=== PATIENT | male | born 1950 | race Caucasian/White ===

== ENCOUNTER 2022-12-02 09:57 | Outpatient (REF) | payer MEDICARE, SELFPAY ==
--- NOTE | ~2022-12-02 | XR_ITS ---
EXAMINATION: XR LUMBOSACRAL SPINE CLINICAL INFORMATION: Lower back pain COMPARISON: None TECHNIQUE: Three views of the lumbosacral spine. FINDINGS: Grade 1 anterolisthesis of L5 on S1. No acute fracture or subluxation. Vertebral body height and alignment otherwise maintained. Disc spaces are maintained. Mild facet arthropathy. The sacroiliac joints are symmetric. The visualized sacrum is intact. Normal bowel gas pattern. Right upper quadrant surgical clips. XR/XR lumbar spine 2-3V IMPRESSION: Mild degenerative changes of the lumbar spine.
== END 2022-12-02 09:58 | disposition home or self-care (01) ==
LOC: HO.XRAY 09:57
PROVIDERS: Absent Provider Internal Medicine Geriatric Medicine; PCP Internal Medicine Geriatric Medicine; Visit Provider Registered Nurse
DX: M54.50 Low back pain, unspecified (principal)
CPT/HCPCS: 72100

== ENCOUNTER → 2023-02-01 07:32 | Outpatient (BNVA) | payer MEDICARE, SELFPAY | PROVIDERS: PCP Internal Medicine Geriatric Medicine; Referring Provider Internal Medicine Geriatric Medicine; Visit Provider Physician Assistant | DX: Z86.010 Personal history of colon polyps (principal) | CPT/HCPCS: 99202 ==

== ENCOUNTER 2023-03-11 09:09 | Outpatient (REF) | payer MEDICARE, SELFPAY | END 2023-03-11 09:10 | disposition home or self-care (01) | LOC: HO.SH 09:09 | PROVIDERS: Visit Provider Registered Nurse | DX: Z01.118 Encounter for examination of ears and hearing with other abnormal findings (principal); H90.3 Sensorineural hearing loss, bilateral; H69.93 Unspecified Eustachian tube disorder, bilateral | CPT/HCPCS: 92557; 92567 ==

== ENCOUNTER 2023-10-06 06:09 | Day surgery (SDC) | payer MEDICARE, SELFPAY ==
[2023-10-01 09:44] VITALS: BMI 29.2
[2023-10-06 06:27] VITALS: BP 127/67; PULSE 76; RESP 16; TEMP 36.8; O2SAT 98
[2023-10-06 06:37] VITALS: BMI 29.7
[2023-10-06] MEDS: Lactated Ringers 1,000 ML 80 ML IVCONT (06:57)
--- NOTE | 2023-10-06 07:43 | P.HPSUR_ITS ---
Pre-Procedural Eval Section A Date of Service: 10/06/23 Section B Chief Complaint: Personal history of colonic polyps Relevant Family History (Specify if Yes): No Relevant Social History: None Present Medications: see Short Stay Collaborative assessment Medical History: Significant History (Basal cell carcinoma Back pain Anxiety and depression) History of Previous Operations: Relevant previous surgery/procedure and date(s) (H/O vasectomy Hx of colonoscopy Hx of hernia repair Hx of cholecystectomy Hx of appendectomy) Allergies: Allergies Allergy/AdvReac Type Severity Reaction Status Date / Time No Known Allergies Allergy Verified 10/06/23 06:35 [No Known Allergies*] Review of Systems Sugical H&P ROS: Negative: Constitution, Cardiovascular, Respiratory, Neurological, Psychiatric, Hem-Onc, Allergic/Immunologic, Gastrointestinal, Genitourinary, Musculoskeletal, Integumentary, Endocrine and Eyes/Ears/Nose/Throat Exam Surgical H&P Exam: Normal: HEENT, Normal: Heart, Normal: Lungs, Normal: Extrem ities, Normal: Abdomen, Normal: Skin and Normal: Neurological Plan Diagnosis/Plan: Unchanged I have reviewed the history and physical and performed a pertinent physical examination on my patient. No changes have occurred unless specified. Time Spent With Patient Time: Total time managing care of this patient today ____ minutes.
--- NOTE | 2023-10-06 08:21 | HO.ANESPROP2 ---
HPI - Anesthesia Eval Consult details Narrative: colonoscopy PMFSH Active Problems Active Problems: All Active Problems (Updated 10/01/23 @ 09:41 by Clare Francis RN) History of colonic polyps (Acute) Past Medical History Medical History (Updated 10/01/23 @ 09:41 by Clare Francis RN) Basal cell carcinoma Back pain Anxiety and depression Family History Family history of problems with anesthesia: No Surgical History Surgical History (Updated 10/06/23 @ 06:35 by Key Lackey) H/O vasectomy Hx of colonoscopy Hx of hernia repair Hx of cholecystectomy Hx of appendectomy History of Problems with Anesthesia: No Social History Social History Household Members Other:: Alcohol intake: never Patient Tobacco Use Status: Never used Tobacco Use of substances other than those prescribed or required for medical reasons: No Are you DNR?: No Advance Directives: No Advance Directives Information Provided: Yes Meds Allergies Allergy/AdvReac Type Severity Reaction Status Date / Time No Known Allergies Allergy Verified 10/06/23 06:35 [No Known Allergies*] Active Medications: Current Medications Lactated Ringer's (Lr) 1,000 mls @ 80 mls/hr IVCONT .[id number] CATIE Last Admin: 10/06/23 06:57 Dose: 80 mls/hr Home Medications Medication Instructions Recorded Confirmed Last Taken Type acetaminophen 500 mg tablet 500 mg PO Q6H PRN Pain 10/01/23 10/06/23 09/06/23 History (Acetaminophen Extra Strength) ibuprofen 600 mg tablet 600 mg PO QID PRN Pain 10/01/23 10/06/23 09/06/23 History Exam Height,Weight and Vital Signs: Height 5 ft 3 in Weight 75.931 kg Last Vital Signs Temp 98.2 F 10/06/23 06:27 Pulse 76 10/06/23 06:27 Resp 16 10/06/23 06:27 BP 127/67 10/06/23 06:27 Pulse Ox 98 10/06/23 06:27 O2 Del Method Room Air 10/06/23 06:27 Airway Mallampati Class: II TM Dist: >3cm Neck ROM: Full Heart: rrr Lungs: cta Assessment and Plan Assessment Anesthesia Assessment: Chart Reviewed Final Anesthetic Review Family History of Problems with Anesthesia: No History of Problems with Anesthesia: No NPO: Yes ASA Class: II Final Preanesthetic Review: No Changes in Pt Med Stat, Meds/Allgs Chart Reviewed, Consent Obtained/Reviewed and Anes Risks/Benef Reviewed Patient Risk: Low Procedure Risk: Low Anesthetic Plan Anesthetic Plan: MAC: and Agree w/ Assess. and Plan Disposition: Standard PACU
--- NOTE | 2023-10-06 09:07 | P.OP_ITS ---
Operative Note Operative Note Date of Service: 10/06/23 Narrative: Operative Information Procedure Description: Colonoscopy Indication: screening Anesthesia: MAC COLONOSCOPY Instrument: Olympus variable stiffness pediatric scope 190L Colonoscopy Monitoring: Vital signs and clinical assessment, continuous EKG monitoring, Pulse oximetry, Carbon Dioxide monitoring and blood pressure monitoring were done throughout the procedure. Colon withdrawal time was 6 minutes. Procedure: The patient was placed in the left lateral decubitis position and pre-procedure medications were administered. After a digital rectal examination of the ano-rectum, the video colonoscope was inserted into the rectum and advanced through the colon to the cecum/TI. The colonoscope was slowly withdrawn in a retrograde panoramic fashion and the colon mucosa was carefully examined including a retroflexed view of the rectum. Findings and interventions are described below. Procedure Difficulty: easy Findings: Terminal Ileum-normal Cecum:normal Ascending Colon: normal Transverse Colon -normal Descending Colon:normal Sigmoid Colon: normal Rectum: Retroflexion with medium sized internal hemorrhoids, grade I Anorectum - normal Colon preparation: [place] Bowel Preparation Scale Right colon; 3 Transverse colon: 3 Left colon; 3 (0 = Unprepared colon segment with mucosa not seen due to solid stool that cannot be cleared. 1 = Portion of mucosa of the colon segment seen, but other areas of the colon segment not well seen due to staining, residual stool and/or opaque liquid. 2 = Minor amount of residual staining, small fragments of stool and/or opaque liquid, but mucosa of colon segment seen well. 3 = Entire mucosa of colon segment seen well with no residual staining, small fragments of stool or opaque liquid) Impression and Post Procedure Diagnosis: internal hemorrhoids Plan: High fiber diet leaflet Avoid straining at stool, epsom salts and sitz bath, anusol supps or cream Repeat Colonoscopy in 10 years if health allows and patient wishes or earlier if clinically indicated Above findings were reviewed with the patient and relevant handouts were provided if indicated.
[2023-10-06 09:26] VITALS: BP 89/50; PULSE 70; RESP 16; TEMP 36.3; O2SAT 97
[2023-10-06 09:40] VITALS: BP 107/60; PULSE 63; RESP 16; O2SAT 96
[2023-10-06 09:56] VITALS: BP 131/64; PULSE 63; RESP 18; TEMP 37.2; O2SAT 99
== END 2023-10-06 10:25 | disposition home or self-care (01) ==
PROVIDERS: PCP Family Medicine; Visit Provider Internal Medicine Gastroenterology
PROC: 0DJD8ZZ Inspection of Lower Intestinal Tract, Via Natural or Artificial Opening Endoscopic (ICD-10-PCS; CPT 45378; principal; 2023-10-06 09:50)
DX: Z12.11 Encounter for screening for malignant neoplasm of colon (principal); Z86.010 Personal history of colon polyps; K64.0 First degree hemorrhoids; F41.8 Other specified anxiety disorders; Z79.1 Long term (current) use of non-steroidal anti-inflammatories (NSAID); Z90.49 Acquired absence of other specified parts of digestive tract; Z85.828 Personal history of other malignant neoplasm of skin; Z98.52 Vasectomy status
CPT/HCPCS: G0105; J2704

== ENCOUNTER → 2023-10-06 06:09 | Outpatient (BNV) | payer MEDICARE, SELFPAY | PROVIDERS: PCP Family Medicine; Visit Provider Internal Medicine Gastroenterology | DX: Z12.11 Encounter for screening for malignant neoplasm of colon (principal); Z86.010 Personal history of colon polyps; K64.8 Other hemorrhoids | CPT/HCPCS: G0105 ==

== ENCOUNTER 2023-10-20 11:01 | Outpatient (AMB) | payer MEDICARE, MEDICAID, SELFPAY ==
--- NOTE | 2023-10-20 11:09 | MHC.OFFVIS ---
Intake Vital Signs 10/20/23 11:11 Height 5 ft 3 in Weight 165 lb BMI 29.2 BP 128/58 L Blood Pressure Location Lt brachial Position Sitting Pulse 79 Intake Visit Reasons: S/P [place]; Dr. Fowler Intake Note: Patient follow up Colonoscopy results. 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 Fowler He tolerated procedure well Reviewed procedure report, as well as recommendation He is a healthy diet He does have alternating stool pattern no abdominal pain or hematemesis hematochezia PFS Medical History (Updated 10/20/23 @ 11:37 by Keri Barfield PA-C) Basal cell carcinoma Back pain Anxiety and depression Surgical History H/O vasectomy Hx of colonoscopy Hx of hernia repair Hx of cholecystectomy Hx of appendectomy Social History Household Members Other:: Alcohol intake: never Patient Tobacco Use Status: Never used Tobacco Review of Systems Const All systems reviewed & are unremarkable except as noted in HPI and below Card Denies chest pain and Denies dyspnea Resp Denies dyspnea Physical Exam Vital Signs: Last Vital Signs Pulse 79 10/20/23 11:11 BP 128/58 L 10/20/23 11:11 BMI result Body Mass Index 29.2 Pleasant alert Gent Const General: cooperative, healthy appearing, comfortable and no acute distress Orientation/consciousness: patient oriented x3 Limitations: language barrier Eyes Sclerae: sclerae normal Resp Effort & Inspection: normal respiratory effort and able to speak in complete sentences Skin General skin exam: no rashes or lesions noted Neuro General: patient oriented x3 Extrem General: Yes full ROM Psych Appearance: grossly normal and well kempt Mental Status: mental status grossly normal Speech and movement: Normal speech and movement present and Clear speech present Affect: normal affect Attitude: cooperative Thought process: Normal thought process present Thought content: Normal thought content present Results Reviewed Results Reviewed: Impression and Post Procedure Diagnosis: internal hemorrhoids Plan: High fiber diet leaflet Avoid straining at stool, epsom salts and sitz bath, anusol supps or cream Repeat Colonoscopy in 10 years if health allows and patient wishes or earlier if clinically indicated Assessment & Plan Assessment & Plan (1) Hemorrhoids: Code(s): K64.9 - Unspecified hemorrhoids Plan: Maintain high-fiber diet Citrucel Avoid straining Plan Repeat asymptomatic colonoscopy 10 years sooner if indicated Maintain high-fiber diet Citrucel Avoid straining Medications: New hydrocortisone 2.5% (Proctosol HC) 1 appl NM BEDTIME PRN 30 grams 3RF hemorrhoids methylcellulose (laxative) (Citrucel) 500 mg PO BID 60 tabs 5RF Patient Instructions: Maintain high-fiber diet Citrucel Avoid straining Asymptomatic colonoscopy 10 years sooner if indicated Coding Level of Care Code Est Pt Level 3 (77242) Diagnoses Hemorrhoids K64.9 Time Spent (min) 15 Comment Assembler Musical 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
[2023-10-20 11:11] VITALS: BP 128/58; PULSE 79; BMI 29.2
== END 2023-10-20 12:35 | disposition home or self-care (01) ==
PROVIDERS: PCP Internal Medicine Geriatric Medicine; Referring Provider Internal Medicine Geriatric Medicine; Visit Provider Physician Assistant
DX: K64.9 Unspecified hemorrhoids (principal)
CPT/HCPCS: 99213

== ENCOUNTER → 2023-10-20 11:01 | Outpatient (BNVA) | payer MEDICARE, SELFPAY | PROVIDERS: PCP Internal Medicine Geriatric Medicine; Visit Provider Physician Assistant | DX: K64.9 Unspecified hemorrhoids (principal) | CPT/HCPCS: 99212 ==

== ENCOUNTER 2024-06-16 10:30 | Outpatient (REF) | payer MEDICARE, MEDICAID, SELFPAY ==
[2024-06-16 14:13] LABS: MANUAL DIFF FLAG NO
[2024-06-16 14:28] LABS: Basophils Absolute Auto 0.1 X10*3/uL (0.0-0.2); Basophils Percent Auto 1.2 % (0-2); Eosinophils Absolute Auto 0.1 X10*3/uL (0.0-0.4); Eosinophils Percent Auto 2.7 % (0-4); Hematocrit 42.1 % (42.0-52.0); Hemoglobin 13.6 g/dl (14.0-18.0); Imm Gran Abs Auto 0.01 X10*3/uL (0.00-0.03); Imm Gran Pct Auto 0.2 % (0.0-0.4); Lymphocytes Absolute Auto 1.6 X10*3/uL (1.2-4.9); Lymphocytes Percent Auto 32.3 % (20-40); Mean Corpuscular HGB Conc 32.3 g/dl (31.0-36.0); Mean Corpuscular Hemoglobin 30.4 pg (27.0-33.0); Mean Corpuscular Volume 94.2 fL (80.0-98.0); Monocytes Absolute Auto 0.4 X10*3/uL (0.1-1.2); Monocytes Percent Auto 7.2 % (2-11); Neutrophils Absolute Auto 2.7 x10*3/uL (2.0-8.3); Neutrophils Percent Auto 56.4 % (45-73); Platelet Count 152 X10*3/uL (160-400); Red Blood Count 4.47 X10*6/uL (4.60-5.80); Red Cell Distribution Width 12.7 % (11.0-16.0); White Blood Count 4.9 X10*3/uL (4.8-10.8)
[2024-06-16 15:02] LABS: Estimated Average Glucose 114 mg/dL; Hemoglobin A1c % 5.6 % (<6.0)
[2024-06-16 15:16] LABS: Prostate Specific Antigen 2.72 ng/mL (<0.05-4.0)
[2024-06-16 15:18] LABS: Alanine Aminotransferase 11 U/L (0-40); Albumin Level 4.1 g/dL (3.5-5.0); Alkaline Phosphatase 70 U/L (39-117); Anion Gap 10 (12-20); Aspartate Amino Transferase 18 U/L (5-37); Bilirubin Total 0.5 mg/dL (0.0-1.0); Blood Urea Nitrogen 15 mg/dL (9-16); Calcium 9.1 mg/dL (8.4-10.2); Carbon Dioxide 29 mmol/L (22-29); Chloride 105 mmol/L (96-108); Cholesterol 156 mg/dL (<200); Estimated Glomerular Filt Rate > 60; Glucose Random 88 mg/dL (60-115); HDL Cholesterol 37 mg/dL (>40); LDL Cholesterol Calculated 96 mg/dL (<100); Potassium 3.7 mmol/L (3.3-5.1); Sodium 140 mmol/L (135-145); Total Protein 7.2 g/dL (6.5-8.0); Triglycerides 117 mg/dL (<150)
[2024-06-16 15:26] LABS: TSH reflex Free T4 1.41 uIU/mL (0.32-4.0)
[2024-06-16 16:00] LABS: CT PCR NOT DETECTED (Not Detect.); NG PCR NOT DETECTED (Not Detect.)
[2024-06-17 07:47] LABS: HBc Num1 0.07 S/CO (0.00-0.79); HBsAGNum1 0.26 S/CO (0.00-0.99); HIV AB/AG Nonreactive (Nonreactive); HIV Num 1 0.05 S/CO (0.00-0.99); Hepatitis B Core Antibody Nonreactive (Nonreactive); Hepatitis B Surface Antigen Negative (Negative); ~Hepatitis B Surface Antibody NONREACTIVE (Nonreactive)
[2024-06-19 12:39] LABS: RPR Rapid Plasma Reagin NON-REACTIVE (NON-REACTIVE)
[2024-06-19 14:13] LABS: HCV Log PCR <1.18 NOT DETECTED Log IU/mL (NOT DETECTED); HepC Viral Load <15 NOT DETECTED IU/mL (NOT DETECTED)
== END 2024-06-16 10:31 | disposition home or self-care (01) ==
LOC: HO.CHCLDS 10:30
PROVIDERS: Visit Provider Registered Nurse
DX: Z00.00 Encounter for general adult medical examination without abnormal findings (principal); Z12.5 Encounter for screening for malignant neoplasm of prostate; Z13.1 Encounter for screening for diabetes mellitus
CPT/HCPCS: 36415; 80053; 80061; 83036; 84153; 84443; 85025; 86592; 86704; 86706; 87340; 87389; 87491; 87522; 87591

== ENCOUNTER 2024-07-28 09:02 | Outpatient (REF) | payer MEDICARE, MEDICAID, SELFPAY ==
--- NOTE | ~2024-07-28 | CT_ITS ---
EXAMINATION: CT HEAD WITHOUT CONTRAST CLINICAL INFORMATION: [place] sensation in back of head. COMPARISON: None available. TECHNIQUE: Contiguous axial imaging was performed from the skull base to vertex without intravenous administration of contrast. This CT examination was performed using dose optimization techniques as appropriate, variously including the following: *Automated exposure control. *Adjustment of mA and/or kV according to patient size (this includes techniques or standardized protocols for targeted exams where dose is matched to indication/reason for exam; i.e. extremities or head). *Use of iterative reconstruction technique. DLP: 817 mGy-cm FINDINGS: There is chronic encephalomalacia within the anterior left frontal lobe with associated volume loss. No additional loss of de [place] ve[place]-white matter differentiation. No evidence of acute intracranial hemorrhage. A few foci of hypoattenuation in the periventricular and deep white matter are consistent with mild microangiopathy. Proportional prominence of the ventricles and sulcal spaces without evidence of obstructive hydrocephalus. No abnormal mass effect or midline shift. No extra-axial fluid collections. Calcific atherosclerotic disease of the intracranial internal carotid and vertebral arteries. No hyperdense vessel sign. Chronic appearing groundglass hyperostotic changes of the left frontal sinus. No acute soft tissue or osseous abnormalities. Mild mucosal thickening of the paranasal sinuses. The mastoid air cells and middle ear cavities are clear. CT/CT head/brain wo IV con IMPRESSION: 1. No evidence of acute intracranial hemorrhage or edematous territorial infarction. 2. 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 Mild underlying microangiopathy and generalized cerebral volume loss. Electronically signed by: Nabil Velazquez DO 09/20/2024 04:37 AM [facility] [place]
== END 2024-07-28 09:03 | disposition home or self-care (01) ==
LOC: HO.CT 09:02
PROVIDERS: PCP Registered Nurse; Visit Provider Registered Nurse
DX: R29.90 Unspecified symptoms and signs involving the nervous system (principal)
CPT/HCPCS: 70450

== ENCOUNTER 2024-08-09 10:20 | Outpatient (REF) | payer MEDICARE, MEDICAID, SELFPAY ==
[2024-08-09 12:21] LABS: Alanine Aminotransferase 17 U/L (0-40); Alkaline Phosphatase 72 U/L (39-117); Aspartate Amino Transferase 24 U/L (5-37); Bilirubin Direct 0.2 mg/dL (0.0-0.5); Bilirubin Total 0.6 mg/dL (0.0-1.0); Cholesterol 146 mg/dL (<200); HDL Cholesterol 36 mg/dL (>40); LDL Cholesterol Calculated 88 mg/dL (<100); Total Protein 7.1 g/dL (6.5-8.0); Triglycerides 113 mg/dL (<150)
== END 2024-08-09 10:21 | disposition home or self-care (01) ==
LOC: HO.HHCL 10:20
PROVIDERS: Visit Provider Registered Nurse
DX: E78.5 Hyperlipidemia, unspecified (principal)
CPT/HCPCS: 36415; 80061; 80076

== ENCOUNTER 2024-08-14 10:53 | Outpatient (AMB) | payer MEDICARE, MEDICAID, SELFPAY ==
--- NOTE | 2024-08-14 11:03 | A.OFFVIS_ITS ---
Intake Visit Reasons: erectile dysfunction Intake Note: New Patient presents for initial visit for erectile dysfunction Urology Medications: none Blood Thinner: none Government Relations Analyst Required: Yes Government Relations Analyst Name: ANDREY BATEMANHERBIE Accompanied by: Self / Same As Patient Allergies No Known Allergies [No Known Allergies*] Allergy (Verified 08/14/24 11:40) Medication List - Last Reconciled 08/14/24 by JUSTIN Snow acetaminophen (Acetaminophen Extra Strength) 500 mg PO Q6H PRN hydrocortisone 2.5% (Proctosol HC) 1 appl RI BEDTIME PRN ibuprofen 600 mg PO QID PRN methylcellulose (laxative) (Citrucel) 500 mg PO BID rosuvastatin 20 mg PO BEDTIME HPI Comments Details: Cheng is a 74-year-old [place]isian-speaking male patient of . He has a past medical history of back pain, basal cell carcinoma, anxiety, and depression. He presents to the office today as a new patient for erectile dysfunction. In discussion with the patient today he reports erectile dysfunction to have been present for over 10-15 years. When asked he does report being able to obtain erections however feels maintaining erections to be difficult. He reports feeling erections are not adequate for penetration. In review of patient's chart it appears PSA was ordered and performed. These results were reviewed with the patient today. PSA 07/04 2.7. We discussed at length potential causes of erectile dysfunction. When asked he does report sexual desire. He otherwise denies any bothersome urinary issues. He denies urinary urgency, urinary frequency, incontinence, nocturia, hematuria, dysuria, foul smelling urine, changes to urinary stream, flank pain, fever, and or chills. He is happy with her current voiding parameters. He otherwise offers no other issues or concerns at this time. [facility] Medical History Basal cell carcinoma Back pain Anxiety and depression Surgical History H/O vasectomy Hx of colonoscopy Hx of hernia repair Hx of cholecystectomy Hx of appendectomy Social History Household Members Other:: Alcohol intake: never Patient Tobacco Use Status: Never used Tobacco Review of Systems Const All systems reviewed & are unremarkable except as noted in HPI and below Physical Exam Const General: cooperative, comfortable, no acute distress, well developed, alert and awake Orientation/consciousness: patient oriented x3 HEENT Head: Yes normal to inspection, Yes normocephalic and Yes atraumatic Ears: hearing grossly normal bilaterally Eyes General: appearance normal, both eyes and all related structures Neck Neck: Yes normal visual inspection and Yes trachea midline Chest Chest palpation & inspection: normal inspection of the chest Resp Effort & Inspection: normal respiratory effort and able to speak in complete sentences Cardio Rate: regular rate GI Inspection: Yes normal to inspection General: Yes no CVA tenderness Back/Spine/Pelvis Back: no CVA tenderness Skin General skin exam: no rashes or lesions noted Neuro General: patient oriented x3 Extrem General: Yes normal to inspection Psych Appearance: grossly normal and well kempt Mental Status: mental status grossly normal Speech and movement: Normal speech and movement present and Clear speech present Affect: normal affect Attitude: cooperative Thought process: Normal thought process present Thought content: Normal thought content present Results AMB Urinalysis, Automated UA Leukoctes 0 Dax/uL Last Edit by Lele Kinsey on 08/14/24 11:20 UA Nitrite Last Edit by Lele Kinsey on 08/14/24 11:20 UA Urobilinogen 0.2 mg/dL Last Edit by Lele Kinsey on 08/14/24 11:20 UA Protein 15 mg/dL Last Edit by Lele Kinsey on 08/14/24 11:20 UA pH 5.5 Last Edit by Lele Kinsey on 08/14/24 11:20 UA Blood 80 Julio/uL Last Edit by Lele Kinsey on 08/14/24 11:20 UA Specific Amery 1.030 Last Edit by Lele Kinsey on 08/14/24 11:20 UA Ketone Last Edit by Lele Kinsey on 08/14/24 11:20 UA Bilirubin 0 mg/dL Last Edit by Lele Kinsey on 08/14/24 11:20 UA Glucose 0 mg/dL Last Edit by Lele Kinsey on 08/14/24 11:20 Results Reviewed Results Reviewed: Laboratory Last Values Urine pH (Auto) 5.5 08/14/24 11:09 Specific Amery (Auto) 1.030 08/14/24 11:09 Urine Protein (Auto) 15 mg/dL 08/14/24 11:09 Glucose (UA)(Auto) 0 mg/dL 08/14/24 11:09 Urine Blood (Auto) 80 Julio/uL 08/14/24 11:09 Urine Bilirubin (Auto) 0 mg/dL 08/14/24 11:09 Urine Urobilinogen (Auto) 0.2 mg/dL 08/14/24 11:09 Leukocyte Esterase (Auto) 0 Dax/uL 08/14/24 11:09 Assessment & Plan Assessment & Plan (1) Erectile dysfunction: Code(s): N52.9 - Male erectile dysfunction, unspecified Category: Medical Plan In office urinalysis results reviewed with the patient today; as noted above. We discussed at length potential causes of erectile dysfunction as well as lifestyle modifications to assist with erectile dysfunction. Recent PSA results reviewed with the patient today; as noted above. Patient reports to be happy with current voiding parameters. He denies any bothersome urinary issues. Start Cialis 5 mg daily. Prescription provided for p.r.n. dosing 1-2 hours prior to sexual activity; discussed not exceeding more than 3 times per week. Follow-up in 3 months; or sooner with any issues, concerns, and or questions. Orders: Orders AMB Urinalysis Automated Today Z13.9 - Encounter for screening, unspecified Medications: New tadalafil Take 1-2 tablets 1-2 hours prior to sexual activity; not to exceed more than 3 times per week. [facility] Group [facility] [address] [id number] 10 mg PO .on demand 30 days PRN 20 tabs 1RF sexual activity N52.9 - Male erectile dysfunction, unspecified [facility] [address] [id number] 5 mg PO DAILY 90 days 90 tabs 0RF Patient Instructions: The patient had an opportunity to ask questions regarding the treatment plan. All questions were answered. Physical exam, labs, and imaging were discussed and reviewed in detail. As well as risks, benefits, and discussion of treatment choices. No major barriers to understanding were identified. The patient expressed understanding and agreement with the above treatment plan. The patient was made aware they should contact our office by phone for worsening of their current condition, the appearance of new symptoms, or with any questions or concerns. Compliance is encouraged with any medications and follow up testing that is ordered. It is a privilege to be allowed the opportunity to participate in? your urological care.? Again, if you have any questions or concerns If you have any questions or concerns please do not hesitate to contact me. The office is [phone]. This note is constructed using voice recognition software. While every effort has been made to ensure accuracy top trimmer errors may have been included. Yours sincerely, JUSTIN Snow Coding Level of Care Code New Pt Level 4 (86973) Diagnoses Erectile dysfunction N52.9
== END 2024-08-14 11:41 | disposition home or self-care (01) ==
LOC: HO.HUSH 10:54
PROVIDERS: PCP Internal Medicine Geriatric Medicine; Visit Provider Nurse Practitioner Family
DX: Z13.9 Encounter for screening, unspecified (principal); N52.9 Male erectile dysfunction, unspecified
CPT/HCPCS: 99204

== ENCOUNTER → 2024-08-14 10:53 | Outpatient (BNVA) | payer MEDICARE, MEDICAID, SELFPAY | PROVIDERS: PCP Internal Medicine Geriatric Medicine; Visit Provider Nurse Practitioner Family | DX: N52.9 Male erectile dysfunction, unspecified (principal) | CPT/HCPCS: 81003; 99202 ==

== ENCOUNTER 2024-11-14 10:28 | Outpatient (AMB) | payer MEDICARE, MEDICAID, SELFPAY ==
--- NOTE | 2024-11-14 10:34 | A.OFFVIS_ITS ---
Intake Visit Reasons: 3m follow up Intake Note: Patient presents today for follow up visit for erectile dysfunction Urology Medications: tadalafil Blood Thinner: none Edge Burnisher Required: Yes Edge Burnisher Name: Brandon [id number] Accompanied by: Self / Same As Patient Allergies No Known Allergies [No Known Allergies*] Allergy (Verified 11/14/24 13:44) Medication List - Last Reconciled 11/14/24 by JUSTIN Snow acetaminophen (Acetaminophen Extra Strength) 500 mg PO Q6H PRN hydrocortisone 2.5% (Proctosol HC) 1 appl SC BEDTIME PRN ibuprofen 600 mg PO QID PRN methylcellulose (laxative) (Citrucel) 500 mg PO BID rosuvastatin 20 mg PO BEDTIME HPI Comments Details: Cheng is a 74-year-old Vietnamese-speaking male patient of Dr. Watson. He has a past medical history of back pain, basal cell carcinoma, anxiety, and depression. He presents to the office today for follow-up of his erectile dysfunction. Of note, patient was seen approximately 3 months ago at which time he was started on low- dose Cialis with p.r.n. dosing on demand. In discussion with the patient today he reports having experienced side effects of the medication therefore he stopped taking the medication. He reports noting dizziness, headaches, and overall body aches. We discussed further treatment options of erectile dysfunction and risks and benefits of these interventions. This was discussed at length. All questions were answered. He discusses his longstanding history of erectile dysfunction over the last 10-15 years. He is able to obtain an erection however feels maintaining erections adequate for penetration to be difficult. PSA 07/04 2.7. We discussed at length potential causes of erectile dysfunction. When asked he does report sexual desire. He otherwise denies any bothersome urinary issues. He denies urinary urgency, urinary frequency, incontinence, nocturia, hematuria, dysuria, foul smelling urine, changes to urinary stream, flank pain, fever, and or chills. He is happy with her current voiding parameters. He otherwise offers no other issues or concerns at this time. [facility] Medical History Basal cell carcinoma Back pain Anxiety and depression Surgical History H/O vasectomy Hx of colonoscopy Hx of hernia repair Hx of cholecystectomy Hx of appendectomy Social History Household Members Other:: Alcohol intake: never Patient Tobacco Use Status: Never used Tobacco Review of Systems Const All systems reviewed & are unremarkable except as noted in HPI and below Physical Exam Const General: cooperative, healthy appearing, comfortable, no acute distress, well developed, alert and awake Orientation/consciousness: patient oriented x3 Limitations: no limitations HEENT Head: Yes normal to inspection, Yes normocephalic and Yes atraumatic Ears: hearing grossly normal bilaterally Eyes General: appearance normal, both eyes and all related structures Neck Neck: Yes normal visual inspection and Yes trachea midline Chest Chest palpation & inspection: normal inspection of the chest Resp Effort & Inspection: normal respiratory effort and able to speak in complete sentences Cardio Rate: regular rate GI Inspection: Yes normal to inspection General: Yes no CVA tenderness Back/Spine/Pelvis Back: no CVA tenderness Skin General skin exam: no rashes or lesions noted Neuro General: patient oriented x3 Extrem General: Yes normal to inspection Psych Appearance: grossly normal and well kempt Mental Status: mental status grossly normal Speech and movement: Normal speech and movement present and Clear speech present Affect: normal affect Attitude: cooperative Thought process: Normal thought process present Thought content: Normal thought content present Insight: Fair insight present (Psych) Judgement: Fair judgement present (Psych) Results AMB Urinalysis, Automated UA Leukoctes 0 Dax/uL Last Edit by Lele Kinsey on 11/14/24 12:17 UA Nitrite Last Edit by Lele Kinsey on 11/14/24 12:17 UA Urobilinogen 0.2 mg/dL Last Edit by Lele Kinsey on 11/14/24 12:17 UA Protein 15 mg/dL Last Edit by Lele Kinsey on 11/14/24 12:17 UA pH 6.0 Last Edit by Lele Padillaleslie on 11/14/24 12:17 UA Blood 80 Julio/uL Last Edit by Lele Kinsey on 11/14/24 12:17 UA Specific [place] 1.025 Last Edit by Lele Kinsey on 11/14/24 12:17 UA Ketone Last Edit by Lele Kinsey on 11/14/24 12:17 UA Bilirubin 0 mg/dL Last Edit by Lele Kinsey on 11/14/24 12:17 UA Glucose 0 mg/dL Last Edit by Lele Kinsey on 11/14/24 12:17 Results Reviewed Results Reviewed: Laboratory Last Values Urine pH (Auto) 6.0 11/14/24 12:15 Specific [place] (Auto) 1.025 11/14/24 12:15 Urine Protein (Auto) 15 mg/dL 11/14/24 12:15 Glucose (UA)(Auto) 0 mg/dL 11/14/24 12:15 Urine Blood (Auto) 80 Julio/uL 11/14/24 12:15 Urine Bilirubin (Auto) 0 mg/dL 11/14/24 12:15 Urine Urobilinogen (Auto) 0.2 mg/dL 11/14/24 12:15 Leukocyte Esterase (Auto) 0 Dax/uL 11/14/24 12:15 Assessment & Plan Assessment & Plan (1) Erectile dysfunction: Code(s): N52.9 - Male erectile dysfunction, unspecified Category: Medical Plan In office urinalysis results reviewed with the patient today; as noted above. We discussed at length potential causes of erectile dysfunction as well as lifestyle modifications to assist with erectile dysfunction. Patient reports to be happy with current voiding parameters. He denies any bothersome urinary issues. Stop Cialis We discussed further treatment options as well as risks and benefits of these treatment options; he would like to think about this with his Follow-up in 3-6 months; or sooner with any issues, concerns, and or questions. Orders: Orders AMB Urinalysis Automated Today Z13.9 - Encounter for screening, unspecified Urine Cytology Today Z13.9 - Encounter for screening, unspecified Medications: Discontinued tadalafil Take 1-2 tablets 1-2 hours prior to sexual activity; not to exceed more than 3 times per week. [facility] DR33 [id number] Discontinued Reason: Doctor's Order 10 mg PO .on demand 30 days PRN 20 tabs 1RF sexual activity N52.9 - Male erectile dysfunction, unspecified tadalafil (Cialis) [facility] [address] [id number] Discontinued Reason: Doctor's Order 5 mg PO DAILY 90 days 90 tabs 0RF Patient Instructions: The patient had an opportunity to ask questions regarding the treatment plan. All questions were answered. Physical exam, labs, and imaging were discussed and reviewed in detail. As well as risks, benefits, and discussion of treatment choices. No major barriers to understanding were identified. The patient expressed understanding and agreement with the above treatment plan. The patient was made aware they should contact our office by phone for worsening of their current condition, the appearance of new symptoms, or with any questions or concerns. Compliance is encouraged with any medications and follow up testing that is ordered. It is a privilege to be allowed the opportunity to participate in? your urological care.? Again, if you have any questions or concerns If you have any questions or concerns please do not hesitate to contact me. The office is [phone]. This note is constructed using voice recognition software. While every effort has been made to ensure accuracy insurance writer errors may have been included. Yours sincerely, JUSTIN Snow Coding Level of Care Code Est Pt Level 3 (07102) Diagnoses Erectile dysfunction N52.9
--- OUTSIDE RECORDS SUMMARY | 2024-11-14 11:19 | XMS_ITS | Clinical Summary ---
Author Organization [employer] Address [address] [place] [address] [address] [place] [address] Care Team Providers Care Heavy Equipment Diesel Mechanic Name Role Phone Meka Boles RADIO MAINTAINER Primary Care Provider [phone] Allergies No known active allergies Medications acetaminophen (Tylenol) 500 MG tablet Take 500 mg by mouth every 6 (six) hours if needed. 1 Active ibuprofen 600 MG tablet Take 600 mg by mouth if needed in the morning, at noon, in the evening, and at bedtime. 7 Active hydrocortisone (Anusol-HC) 2.5 % rectal cream APPLY 1 APPLICATION RECTALLY BEDTIME NEEDED FOR HEMORRHOIDS 4 Active rosuvastatin (Crestor) 20 MG tablet Take 1 tablet (20 mg) by mouth at bedtime. 90 tablet 1 4 06/20/20 25 Active Active Problems Problem Noted Date Diagnosed Date Erectile dysfunction 06/17/2024 Overview (06/17/2024): Referral to Urology placed 06/17/24 Routine health maintenance 01/08/2023 Overview (06/17/2024): -Colonoscopy: 10/06/23 [facility] - Dr. Fowler. Next due: Sep 2033 -PSA: WNL 06/16/24 -Last PE: 06/16/24 Assessment & Plan (06/17/2024 11:48 AM EDT): Declines vaccines today Assessment & Plan (09/20/2023 1:24 PM EST): Declines vaccines today History of basal cell carcinoma 12/06/2022 Overview (09/20/2023): ?? Left ala s/p Mohs procedure 08/2018 ?? Followed with annual skin check [facility] Derm (Last eval January [address] Nigel Domínguez) Assessment & Plan (06/17/2024 11:34 AM EDT): Due for annual skin check. Internal referral placed to Derm team. Chronic frontal sinusitis 12/06/2022 Overview (06/17/2024): -Followed by ENT Dr. 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 ([facility]) Assessment & Plan (06/17/2024 11:46 AM EDT): Currently asymptomatic, follow up with specialist PRN Assessment & Plan (09/20/2023 1:24 PM EST): Currently asymptomatic, follow up with specialist Allergic rhinitis 08/25/2016 Anxiety and depression 05/31/2015 Assessment & Plan (06/17/2024 11:47 AM EDT): Hx of severe episode of depression/anxiety in the past, but reports has been good since. Not currently following with team. Follow up if interested/needed in future. Chronic neck and back pain 05/31/2015 Encounters Date Type Department Care Team Description 09/26/2024 Telephone [facility] [address] [place] [address] Meka Boles FNP 08/15/2024 Telephone [facility] [address] [place] [address] Meka Boles FNP [place] recall 08/14/2024 Telephone [facility] [address] [place] [address] Meka Boles FNP Results from Last 3 Months Social History Tobacco Use Types Packs/Day Years Used Date Smoking Tobacco: Never Smokeless Tobacco: Never Tobacco Cessation:Counseling Given: Not Answered Alcohol Use Standard Drinks/Week Comments Never 0 (1 standard drink = 0.6 oz pur e alcohol) Depression Answer Date Recorded Patient Health Questionnaire-9 Score 2 06/16/2024 Patient Health Questionnaire-9 Score 2 06/16/2024 Last PHQ-9: Questionnaire Data Not on file 0 06/16/2024 Housing Stability Answer Date Recorded What is your housing situation today? I have kylee castaneda 06/08/[address] you li ve. Do you have problems with any of the following? None of the above 06/08/2024 Food Insecurity Answer Date Recorded Within the past 12 months, y ou worried that your food would run out before you got money to buy more: Never True 06/08/2024 Within the past 12 months,th e food you bought just didn't last and you didn't have enough money to get more: Never True Transportation Answer Date Recorded In the past 12 months, has l ack of transportation kept you from medical appts, meetings, work or from getting things needed for daily living? No 06/08/2024 Utilities Answer Date Recorded In the past 12 months, has t he electric, gas, oil or water company threatened to shut off services in your home? No 06/08/2024 Depression Answer Date Recorded Patient Health Questionnaire-2 Score 0 06/16/2024 Internet Access Answer Date Recorded Internet Access Q1 Yes 06/12/2024 Internet Access Q2 Not on file 06/12/2024 Sex and Gender Information Value Date Recorded Sex Assigned at Male 10/29/2022 8:58 AM EST Legal Sex Male 8:54 AM EST Gender Identity Male 10/29/2022 8:58 AM EST Sexual Orientation Straight 06/20/2024 4: 37 PM EDT Last Filed Vital Signs Vital Sign Reading Time Taken Comments Blood Pressure 133/73 06/16/2024 9:07 AM EDT Pulse 57 06/16/2024 9:07 AM EDT Temperature 36.5 ??C (97.7 ??F) 06/16/2024 9:07 AM ED T Respiratory Rate 20 06/16/2024 9:07 AM EDT Oxygen Saturation 97% 06/16/2024 9:07 AM EDT Inhaled Oxygen Concentration - - Weight 74.8 kg (165 lb) 06/16/2024 9:07 AM EDT Height 160 cm (5' 3 ) 06/16/2024 9:07 AM EDT Body Mass Index 29.23 06/16/2024 9:07 AM EDT Plan of Treatment Health Maintenance Due Date Last Done Comments CT Colonography 1949 Colonoscopy 1949 Colorectal Cancer Screening 1949 Dental Prophylaxis 1949 Dental X-Ray: Bitewings 1949 FIT DNA/Cologuard 1949 FIT 1949 FOBT 1949 Sigmoidoscopy 1949 Alcohol/Substance Use Screening 1961 DTaP/Tdap/Td Vaccines (1 - Tdap) 01/12/1968 Pneumococcal Vaccine: 50+ Years (1 of 1 - PCV) 1999 Dental Oral Exam 07/11/2023 01/08/2023 Influenza Vaccine (#1) 2025 Postp oned from 06/11/2024 (Patient Refused) SDOH Screening 06/08/2025 06/08/2024 Depression Screening 06/16/2025 06/16/2024, 06/16/2024 COVID-19 Vaccine (1 - 2023-2 5 season) 2025 Postponed from 06/11 (Patient Refused) RSV Patients and Patients Aged 60 years or older (1 - 1-dose 75+ series) 06/17/2025 Postponed from 01/12/2024 (Patient Refused) Tobacco Screening 06/17/2025 06/17/2024 Zoster Vaccines (1 of 2) 06/17/2025 Pos tponed from 1999 (Patient Refused) Dental X-Ray: Full Mouth 01/09/2026 01/08/2023 Lipid Panel 08/09/2029 08/09/2024, 06/16/2024, 12/02/2022 Hepatitis A Vaccines Aged Out 03/30/2017 No long er eligible based on patient's age to complete this topic Hepatitis C Screening Completed 06/16/2024 , 12/02/2022 HIB Vaccines Aged Out No longer eligi ble based on patient's age to complete this topic HPV Vaccines Aged Out No longer eligi ble based on patient's age to complete this topic Hepatitis B Vaccines Aged Out No long er eligible based on patient's age to complete this topic IPV Vaccines Aged Out No longer eligi ble based on patient's age to complete this topic Meningococcal Vaccine Aged Out No sherly terrance eligible based on patient's age to complete this topic RSV under 20 months Aged Out No longe r eligible based on patient's age to complete this topic Rotavirus Vaccines Aged Out No longer eligible based on patient's age to complete this topic Procedures Procedure Name Priority Date/Time Associated Diagnosis Comments LIPID PANEL, STANDARD Routine 08/09/2024 10:21 AM EDT HEPATITIS C VIRAL RNA, QUANTITATIVE, REAL-TIME PCR Routine 06/16/2024 10:33 AM EDT Encounter for routine history and physical examination of adult PANORAMIC RADIOGRAPHIC IMAGE Routine 01/08/2023 3:00 PM EDT Edentulism COMPREHENSIVE ORAL EVALUATION - NEW OR ESTABLISHED PATIENT Routine 01/08/2023 3:00 PM EDT Edentulism from Last 3 Months or Most Recently Relevant to Health Maintenance Results * (ABNORMAL) Lipid Panel, Standard (08/09/2024 10:21 AM EDT) Triglycerides 113 <150 mg/dL [facility] Comment:Desirable Triglyceri de: less than 150 mg/dLBorderline High Triglyceride 150-199 mg/dLHigh Triglyceride: 200-499 mg/dLVery High Triglyceride: greater than or equal to 5OO mg/dL Cholesterol 146 <200 mg/dL [facility] Comment:Desirable Cholestero l: less than 200 mg/dLBorderline High Cholesterol: 200-239 mg/dLHigh Cholesterol: greater than 239 mg/dL LDL Cholesterol Calculated 88 <100 mg/dL [facility] Comment:Desirable LDL: less than 100 mg/dLNear Optimal/Above Optimal LDL: 110- 129 mg/dLBorderline High LDL: 130-159 mg/dLHigh LDL: 160-189 mg/dLVery High LDL: greater than or equal to 190 mg/dL HDL Cholesterol 36(L) >40 mg/dL [facility] Comment:Desirable HDL: great er than 40 mg/dL Note: This HDL assay may give artificially low results in patients with liver disease. 08/09/2024 10:2 1 AM EDT 08/09/2024 11:36 AM EDT Meka Boles RADIO MAINTAINER LAB BLOOD ORDERABLES Final Res ult Performing Organization Address [facility] Co de Phone Number [facility] [address] [place] [phone] * Hepatitis C Viral RNA, Quantitative, Real-Time PCR (06/16/2024 10:33 AM EDT) Hepatitis C Viral Load <15 NOT DETECTED NOT DETECTED IU/mL [facility] HCV Log PCR <1.18 NOT DETECTED NOT DETECTED Log IU/mL [facility] Comment:For additional infor daly, please refer [email or web address].Cloudike/faq/WPX44t0(This link is being provided for informational/educational purposes only.)THIS TEST WAS PERFORMED AT:[employer] [place] [id number] DOMINGUEZ MD Blood 06/16/2024 10:3 3 AM EDT 06/16/2024 2:03 PM EDT Meka Boles RADIO MAINTAINER LAB BLOOD ORDERABLES Final Res ult Performing Organization Address [facility] de Phone Number [facility] [address] [place] [phone] from Last 3 Months or Most Recently Relevant to Health Maintenance Insurance [facility] MEDICARE ADVANTAGE HMO DENTAL [facility] Care Teams Heavy Equipment Diesel Mechanic Relationship Specialty Start Date End Date Meka Boles FNP [address] [place] [phone] PCP - General Family Medicine 12/01/22
--- OUTSIDE RECORDS SUMMARY | 2024-11-14 11:19 | XMS_ITS | Encounter Summary ---
Author Organization [facility] Address [address] [place] [address] [address] [place] [address] Care Team Providers Care Division Chair Name Role Phone Meka Boles Primary Care Provider [phone] Reason for Visit * Reason Onset Date Comments r/s appt 12/04/2022 Encounter Details Date Type Department Care Team ([facility] st Contact Info) Description 12/04/2022 Telephone [facility] [address] [place] [address] Meka Boles FNP [address] [place] [address] r/s appt Social History Tobacco Use Types Packs/Day Years Used Date Smoking Tobacco: Never Smokeless Tobacco: Never Alcohol Use Standard Drinks/Week Comments Never 0 (1 standard drink = 0.6 oz pur e alcohol) Sex and Gender Information Value Date Recorded Sex Assigned at Male 10/29/2022 8:58 AM EST Legal Sex Male 8:54 AM EST Gender Identity Male 10/29/2022 8:58 AM EST Sexual Orientation Straight 06/20/2024 4: 37 PM EDT COVID-19 Exposure Response Date Recorded In the last 10 days, have yo u been in contact with someone who was confirmed or suspected to have Coronavirus/COVID-19? No / Unsure 12/01/2022 2:08 PM EST documented as of this encounter Miscellaneous Notes * Telephone Encounter - Ariela Solorio - 12/04/2022 1:55 PM EST Tc from pt requesting to r/s appt for follow up appt on 01/04/2023. Florist Supplies Salesperson tried booking but nothing is available Please contact pt at [phone] documented in this encounter Plan of Treatment Not on file documented as of this encounter Visit Diagnoses Not on filedocumented in this encounter Care Teams Division Chair Relationship Specialty Start Date End Date Meka Boles FNP [address] [place] [phone] PCP - General Family Medicine 12/01/22 documented as of this encounter
--- OUTSIDE RECORDS SUMMARY | 2024-11-14 11:19 | XMS_ITS | Clinical Summary ---
Author Organization [facility] it Address [address] [place] [address] Care Team Providers Care Rn Hematology Name Role Phone Veronique Henry MD Primary Care Prov ider Allergies No known active allergies Medications Medication Sig Dispensed Refills Start Date End Date Status acetaminophen (TYLENOL 8 HOUR) 650 mg 8 hr tablet Take 1 Tab by mouth every 8 hours as needed for Pain. 08/23/2020 Active cetirizine (ZyrTEC) 10 mg tablet Take 1 tablet (10 mg total) by mouth 1 (one) time each day. 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 Depression 05/25/2018 Multiple nevi 05/25/2018 Overview (09/27/2024): Derm referral 03/2017 Immunizations Name Administration Dates Next Due Hep A, Unspecified 03/30/2017 Surgical History Surgery Date Site/Laterality Comments CHOLECYSTECTOMY PROCEDURE: HISTORICAL CHOLECYSTECTOMY APPENDECTOMY PROCEDURE: HISTORICAL APPENDECTOMY HERNIA REPAIR Right PROCEDURE: REPAIR INGUINAL HERNIA VASECTOMY PROCEDURE: HISTORICAL VASECTOMY Medical History Medical History Date Comments Anxiety 05/25/2018 DX:Anxiety Cervicalgia 05/25/2018 DX:Cervicalgia Chronic frontal sinusitis 05/25/2018 DX:Chr onic frontal sinusitis Depression 05/25/2018 DX:Depression Low back pain 05/25/2018 DX:Low back pain Multiple nevi 05/25/2018 DX:Multiple nevi ; COMMENT: Derm referral 03/2017 Skin lesion of face 06/09/2018 DX:Skin lesi on of face Facial tic 06/09/2018 DX:Facial tic Spider veins 06/09/2018 DX:Spider veins History of infection 02/08/2019 DX:History of infection; COMMENT: Left frontal abscess in childhood, treated in [place] with I&D and antibiotics Abnormal laboratory test result 10/27/2019 DX:Abnormal laboratory test result; COMMENT: Nonnproductive pneumococcal and diphtheria titers October 2019 Family History Medical History Relation Name Comments Prostate cancer Father Breast cancer Neg Hx Colon cancer Neg Hx Ovarian cancer Neg Hx Relation Name Status Comments Father Social History Tobacco Use Types Packs/Day Years Used Date Smoking Tobacco: Never Smokeless Tobacco: Never Alcohol Use Standard Drinks/Week Comments No 0 (1 standard drink = 0.6 oz pur e alcohol) Sex and Gender Information Value Date Recorded Sex Assigned at Not on file Gender Identity Not on file Sexual Orientation Not on file Obstetrics History Plan of Treatment Health Maintenance Due Date Last Done Comments DTaP,Tdap,and Td Vaccines (1 - Tdap) 01/12/1968 Zoster Vaccines (1 of 2) 1999 Pneumococcal Vaccine: 65+ Ye ars (1 of 1 - PCV) 2014 Abdominal Aortic Aneurysm (A AA) Screen 09/19/2022 Colorectal Cancer Screening: Colonoscopy 09/19/2022 Depression Screening 09/19/2022 Falls Risk Assessment 09/19/2022 Social Influencers of Health Screening 09/19/2022 RSV Immunization Patients 60 + Years Old (1 - 1-dose 75+ series) 01/12/2024 COVID-19 Vaccine ( - 2023-2 5 season) 2024 Influenza Vaccine (#1) 2024 Cholesterol Screening (Lipid Panel) 06/19/2024 06/19/2019 Hepatitis A Vaccines Aged Out 03/30/2017 No long er eligible based on patient's age to complete this topic Hepatitis C Screening Completed 03/30/2017 HIB Vaccines Aged Out No longer eligi [...] on patient's age to complete this topic MMR Vaccines Aged Out No longer eligi ble based on patient's age to complete this topic Meningococcal ACWY Vaccine Aged Out N o longer eligible based on patient's age to complete this topic RSV Immunization Patients Un ruben 20 months Aged Out No longer eligible b ased on patient's age to complete this topic Varicella Vaccines Aged Out No longer eligible based on patient's age to complete this topic Procedures Procedure Name Priority Date/Time Associated Diagnosis Comments LIPID PANEL Routine 06/19/2019 HEPATITIS C SCREENING Routine 03/30/2017 from Last 3 Months or Most Recently Relevant to Health Maintenance Results * Lipid panel (06/19/2019) LDL/HDL Ratio 4 0 - 4 Triglycerides 130 0 - 150 mg/dL Cholesterol 146 0 - 200 mg/dL HDL 40 40 mg/dL LDL Cholesterol 80 0 - 100 mg/dL Blood Venous blood specimen / Unknown Historical Provider LAB BLOOD ORDERAB LES * Hepatitis C Screening (03/30/2017) [facility] Hepatitis C Screening Abstracted Historical Provider HEALTH MAINTENANC E from Last 3 Months or Most Recently Relevant to Health Maintenance Care Teams Rn Hematology Relationship Specialty Start Date End Date Veronique Henry MD PCP - General Internal Medicine 04/20/22
--- OUTSIDE RECORDS SUMMARY | 2024-11-14 11:19 | XMS_ITS | Clinical Summary ---
Author Organization [facility] Address [address] [place] [address] Care Team Providers Care Flag Maker Name Role Phone Xin Shaw PA-C Primary Care Provider [phone] Source Comments PLEASE NOTE, if this patient is a minor, it may be UNLAWFUL to discuss sensitive information that is contained in these records (such as FAMILY PLANNING, MENTAL HEALTH or SUBSTANCE ABUSE) with the minor patient's parent or other person without the patient's specific authorization.[facility] Allergies No known active allergies Medications multivitamin tabletIndication s:Vegetarian diet Take 1 Tab by mouth once daily 06/17/2017 Active ibuprofen (ADVIL,MOTRIN) 600 mg tabletIndication s:Chronic neck and back pain Take 1 Tab by mouth 4 (four) times daily as needed for pain Take with food 120 Tab 06/17/2017 Active Active Problems Problem Noted Date Diagnosed Date Vegetarian diet 06/17/2017 Allergic rhinitis 08/25/2016 Chronic neck and back pain 05/31/2015 Anxiety and depression- stable no meds 5 Overview (05/31/2015): In 2010 had an episode of severe anxiety and depression Was started on klonopin, now on nothing, is stable but says for a while gets little symptoms Social History Tobacco Use Types Packs/Day Years Used Date Smoking Tobacco: Never Smokeless Tobacco: Never Alcohol Use Standard Drinks/Week Comments No 0 (1 standard drink = 0.6 oz pur e alcohol) Social Connections Answer Date Recorded Social Connections and Isolation 0 06/02/2019 Financial Resource Strain Answer Date R ecorded Financial Resource Strain 0 2018 Stress Answer Date Recorded Stress 0 06/02/2019 Physical Activity Answer Date Recorded Physical Activity 0 06/02/2019 Food Insecurity Answer Date Recorded Food 0 06/02/2019 Transportation Needs Answer Date Record ed Transportation 0 06/02/2019 Housing Stability Answer Date Recorded Housing 0 06/02/2019 Safety and Environment Answer Date Jamarcus rded Safety 0 06/02/2019 Utilities Answer Date Recorded Utilities 0 06/02/2019 Employment Answer Date Recorded Employment 0 06/02/2019 Sex and Gender Information Value Date Recorded Sex Assigned at Not on file Legal Sex Male 11:16 AM PDT Gender Identity Not on file Sexual Orientation Not on file Last Filed Vital Signs Vital Sign Reading Time Taken Comments Blood Pressure 120/69 06/17/2017 9:56 AM EDT Pulse 72 06/17/2017 9:56 AM EDT Temperature 36.8 ??C (98.2 ??F) 06/17/2017 9:56 AM ED T Respiratory Rate 12 06/17/2017 9:56 AM EDT Oxygen Saturation - - Inhaled Oxygen Concentration - - Weight 73.5 kg (162 lb) 06/17/2017 9:56 AM EDT Height 160 cm (5' 3 ) 06/17/2017 9:56 AM EDT Body Mass Index 28.7 06/17/2017 9:56 AM EDT Plan of Treatment Not on file Insurance MEDICARE - [place] Care Teams Flag Maker Relationship Specialty Start Date End Date Xin Shaw PA-C [address] [place] [address] PCP - General 12/06/18
== END 2024-11-14 11:17 | disposition home or self-care (01) ==
PROVIDERS: PCP Internal Medicine Geriatric Medicine; Visit Provider Nurse Practitioner Family
DX: Z13.9 Encounter for screening, unspecified (principal); N52.9 Male erectile dysfunction, unspecified
CPT/HCPCS: 99213

== ENCOUNTER 2024-11-14 10:28 | Outpatient (REF) | payer MEDICARE, MEDICAID, SELFPAY ==
--- OUTSIDE RECORDS SUMMARY | 2024-11-14 13:00 | XMS_ITS | Clinical Summary ---
Author Organization [facility] Address [address] [place] [address] Care Team Providers Care Director Of Residential Services Name Role Phone Xin Shaw PA-C Primary Care Provider [phone] Source Comments PLEASE NOTE, if this patient [...] file Insurance [place]ICARE - [place] Care Teams Director Of Residential Services Relationship Specialty Start Date End Date Xin Shaw PA-C [address] [place] [address] PCP - General 12/06/18
--- OUTSIDE RECORDS SUMMARY | 2024-11-14 13:00 | XMS_ITS | Clinical Summary ---
Author Organization [facility] it Address [address] [place] [address] Care Team Providers Care Certified Legal Investigator Name Role Phone Veronique Henry MD Primary [...] frontal sinusitis 05/25/2018 Overview (09/27/2024): Follows with [place] [facility] Had an MRI of [...] Left frontal abscess in childhood, treated in [place] with I&D and antibiotics Abnormal laboratory test [...] LES * Hepatitis C Screening (03/30/2017) Pathologist [facility] Hepatitis C Screening Abstracted Historical Provider HEALTH MAINTENANC E from Last 3 Months or Most Recently Relevant to Health Maintenance Care Teams Certified Legal Investigator Relationship Specialty Start Date End Date Veronique Henry MD PCP - General Internal Medicine 04/20/22
--- OUTSIDE RECORDS SUMMARY | 2024-11-14 13:00 | XMS_ITS | Clinical Summary ---
Author Organization [employer] Address [address] [place] [address] [address] [place] [address] Care Team Providers Care Beverage Steward Name Role Phone Meka Boles RELIGIOUS EDUCATION TEACHER Primary Care Provider Allergies No known active allergies Medications acetaminophen [...] health maintenance 01/08/2023 Overview (06/17/2024): -Colonoscopy: 10/06/23 [facility] - Dr. Fowler. Next due: Sep 2033 -PSA: WNL 06/16/24 -Last PE: 06/16/24 Assessment & Plan (06/17/2024 11:48 AM EDT): Declines vaccines today Assessment & Plan (09/20/2023 1:24 PM EST): Declines vaccines today History of basal cell carcinoma 12/06/2022 Overview (09/20/2023): ?? Left ala s/p Mohs procedure 08/2018 ?? Followed with annual skin check [facility] Derm (Last eval January [address] [...] Type Department Care Team Description 09/26/2024 Telephone [facility] [address] [place] [address] Meka Boles FNP 08/15/2024 Telephone [facility] [address] [place] [address] Meka Boles FNP [place] recall 08/14/2024 Telephone [facility] [address] [place] [address] Meka Boles FNP Results from Last 3 [...] 10:21 AM EDT) Triglycerides 113 <150 mg/dL [facility] Comment:Desirable Triglyceri de: less than 150 mg/dLBorderline High Triglyceride 150-199 mg/dLHigh Triglyceride: 200-499 mg/dLVery High Triglyceride: greater than or equal to 5OO mg/dL Cholesterol 146 <200 mg/dL [facility] Comment:Desirable Cholestero l: less than 200 mg/dLBorderline High Cholesterol: 200-239 mg/dLHigh Cholesterol: greater than 239 mg/dL LDL Cholesterol Calculated 88 <100 mg/dL [facility] Comment:Desirable LDL: less than 100 mg/dLNear Optimal/Above Optimal LDL: 110- 129 mg/dLBorderline High LDL: 130-159 mg/dLHigh LDL: 160-189 mg/dLVery High LDL: greater than or equal to 190 mg/dL HDL Cholesterol 36(L) >40 mg/dL [facility] Comment:Desirable HDL: great er than 40 mg/dL Note: This HDL assay may give artificially low results in patients with liver disease. 08/09/2024 10:2 1 AM EDT 08/09/2024 11:36 AM EDT Meka Boles RELIGIOUS EDUCATION TEACHER LAB BLOOD ORDERABLES Final Res ult Performing Organization Address [facility] Co de Phone Number [facility] [address] [place] [phone] * Hepatitis C Viral RNA, Quantitative, Real-Time PCR (06/16/2024 10:33 AM EDT) Hepatitis C Viral Load <15 NOT DETECTED NOT DETECTED IU/mL [facility] HCV Log PCR <1.18 NOT DETECTED NOT DETECTED Log IU/mL [facility] Comment:For additional infor daly, please refer [email or web address]/faq/BKE96y3(This link is being provided for informational/educational purposes only.)THIS TEST WAS PERFORMED AT:[employer] [place] [phone] DOMINGUEZ MD Blood 06/16/2024 10:3 3 AM EDT 06/16/2024 2:03 PM EDT Meka Boles RELIGIOUS EDUCATION TEACHER LAB BLOOD ORDERABLES Final Res ult Performing Organization Address [facility] de Phone Number [facility] [address] [place] [phone] from Last 3 Months or Most Recently Relevant to Health Maintenance Insurance [facility] MEDICARE ADVANTAGE HMO DENTAL [facility] Care Teams Beverage Steward Relationship Specialty Start Date End Date Meka Boles FNP [address] [place] [phone] PCP - General Family Medicine 12/01/22
--- OUTSIDE RECORDS SUMMARY | 2024-11-14 13:00 | XMS_ITS | Encounter Summary ---
Author Organization [facility] Address [address] [place] [address] [address] [place] [address] Care Team Providers Care Associate Professor Of English Name Role Phone Meka Boles Primary Care Provider [phone] Reason for Visit * Reason Onset Date Comments r/s appt 12/04/2022 Encounter Details Date Type Department Care Team ([facility] st Contact Info) Description 12/04/2022 Telephone [facility] [address] [place] [address] Meka Boles FNP [address] [place] [address] r/s appt Social History Tobacco Use Types [...] appt for follow up appt on 01/04/2023. Brake Repairer Hydraulic tried booking but nothing is available Please contact pt at [phone] documented in this encounter Plan of Treatment Not on file documented as of this encounter Visit Diagnoses Not on filedocumented in this encounter Care Teams Associate Professor Of English Relationship Specialty Start Date End Date Meka Boles FNP [address] [place] [phone] PCP - General Family Medicine 12/01/22 documented as of this encounter
[2024-11-14 17:17] LABS: Urine Cytology See Pathology rpt
== END 2024-11-14 10:29 | disposition home or self-care (01) ==
LOC: HO.LNP 10:28
PROVIDERS: PCP Internal Medicine Geriatric Medicine; Visit Provider Nurse Practitioner Family
DX: N52.9 Male erectile dysfunction, unspecified (principal)
CPT/HCPCS: 81003; 88112; 99212

== ENCOUNTER 2025-03-01 14:16 | Outpatient (REF) | payer MEDICARE, SELFPAY ==
--- OUTSIDE RECORDS SUMMARY | 2025-03-01 14:24 | XMS_ITS | Clinical Summary ---
Author Organization [facility] it Address [address] [place] [address] Care Team Providers Care Console Operator Name Role Phone Veronique Henry MD Primary Care Prov ider Allergies No known active allergies Medications acetaminophen (TYLENOL 8 HOUR) 650 mg 8 [...] frontal sinusitis 05/25/2018 Overview (09/27/2024): Follows with [place] [facility] Had an MRI of [...] Left frontal abscess in childhood, treated in [place] with I&D and antibiotics Abnormal laboratory test [...] at Not on file Legal Sex Male 10:26 AM EST Gender Identity Not on file Sexual Orientation Not on file Obstetrics History Plan of Treatment Health Maintenance Due Date Last Done Comments DTaP,Tdap,and Td Vaccines (1 - Tdap) 01/12/1968 Pneumococcal Vaccine: 50+ Ye ars (1 of 1 - PCV) 1999 Zoster Vaccines (1 of 2) 1999 Depression Screening 09/19/2022 Falls Risk Assessment 09/19/2022 Social Influencers of Health Screening 09/19/2022 RSV Immunization Adult Patie nts (1 - 1-dose 75+ series) 01/12/2024 COVID-19 Vaccine ( - 2023-2 5 season) 2024 Cholesterol Screening (Lipid Panel) 06/19/2024 06/19/2019 Influenza Vaccine (Season Ended) 2025 Hepatitis A Vaccines Aged Out 03/30/2017 No [...] patient's age to complete this topic Meningococcal B Vaccine Aged Out No l onger eligible based on patient's age to complete [...] 146 0 - 200 mg/dL HDL 40 >=40 mg/dL LDL Cholesterol 80 0 - 100 mg/dL Blood Venous blood specimen / Unknown Historical Provider LAB BLOOD ORDERABLES Rhonda l Result * Hepatitis C Screening (03/30/2017) Hepatitis C Screening Abstracted Historical Provider HEALTH MAINTENANCE Final Result from Last 3 Months or Most Recently Relevant to Health Maintenance Care Teams Console Operator Relationship Specialty Start Date End Date Veronique Henry MD PCP - General Internal Medicine 04/20/22
== END 2025-03-01 14:17 | disposition home or self-care (01) ==
LOC: HO.SH 14:16
PROVIDERS: Visit Provider Registered Nurse
DX: Z01.118 Encounter for examination of ears and hearing with other abnormal findings (principal); H90.3 Sensorineural hearing loss, bilateral
CPT/HCPCS: 92557; 92567

== ENCOUNTER 2025-07-18 08:33 | Outpatient (REF) | payer MEDICARE, MEDICAID, SELFPAY ==
[2025-07-18 14:22] LABS: MANUAL DIFF FLAG NO
[2025-07-18 14:31] LABS: Hematocrit 39.5 % (42.0-52.0); Hemoglobin 13.1 g/dl (14.0-18.0); Imm Gran Abs Auto 0.01 X10*3/uL (0.00-0.03); Imm Gran Pct Auto 0.2 % (0.0-0.4); Lymphocytes Absolute Auto 1.7 X10*3/uL (1.2-4.9); Mean Corpuscular HGB Conc 33.2 g/dl (31.0-36.0); Mean Corpuscular Hemoglobin 31.1 pg (27.0-33.0); Mean Corpuscular Volume 93.8 fL (80.0-98.0); NRBC Abs Auto 0.000 X10*3/uL (0.0-0.012); NRBC Pct Auto 0.0 /100WBC (0.0-0.2); Platelet Count 143 X10*3/uL (160-400); Red Blood Count 4.21 X10*6/uL (4.60-5.80); White Blood Count 5.0 X10*3/uL (4.8-10.8)
[2025-07-18 15:01] LABS: Alanine Aminotransferase 14 U/L (0-40); Albumin Level 4.1 g/dL (3.5-5.0); Alkaline Phosphatase 79 U/L (39-117); Anion Gap 7 (12-20); Aspartate Amino Transferase 29 U/L (5-37); Blood Urea Nitrogen 12 mg/dL (9-16); Calcium 8.9 mg/dL (8.4-10.2); Carbon Dioxide 29 mmol/L (22-29); Chloride 109 mmol/L (96-108); Cholesterol 153 mg/dL (<200); Estimated Glomerular Filt Rate > 60; HDL Cholesterol 32 mg/dL (>40); Potassium 3.7 mmol/L (3.3-5.1); Sodium 141 mmol/L (135-145); Total Protein 6.8 g/dL (6.5-8.0); Triglycerides 109 mg/dL (<150)
[2025-07-18 15:12] LABS: Prostate Specific Antigen 2.55 ng/mL (<0.05-4.0)
[2025-07-18 16:14] LABS: Total Hemoglobin (HGBA1C) 3403.1274 umol/L
== END 2025-07-18 08:34 | disposition home or self-care (01) ==
LOC: HO.CHCLDS 08:33
PROVIDERS: Visit Provider Registered Nurse
DX: Z00.00 Encounter for general adult medical examination without abnormal findings (principal); Z12.5 Encounter for screening for malignant neoplasm of prostate; Z13.1 Encounter for screening for diabetes mellitus; Z13.6 Encounter for screening for cardiovascular disorders
CPT/HCPCS: 36415; 80053; 80061; 83036; 84153; 84443; 85025

== ENCOUNTER 2025-08-17 11:31 | Outpatient (REF) | payer MEDICARE, MEDICAID, SELFPAY ==
--- OUTSIDE RECORDS SUMMARY | 2025-08-17 13:57 | XMS_ITS | Encounter Summary ---
Author Organization [employer] Address [address] [place] [address] [address] [place] [address] Care Team Providers Care Newspaper Carriers Supervisor Name Role Phone Meka Boles Primary Care Provider [phone] Reason for Visit * Reason Onset Date Comments r/s appt 12/04/2022 Encounter Details Date Type Department Care Team ([facility] st Contact Info) Description 12/04/2022 Telephone [facility] MEDICINE [address] [place] [address] Meka Boles FNP [address] [place] [address] r/s appt Social History Tobacco Use Types [...] appt for follow up appt on 01/04/2023. Want Ad Supervisor tried booking but nothing is available Please contact pt at [phone] documented in this encounter Plan of Treatment Not on file documented as of this encounter Visit Diagnoses Not on filedocumented in this encounter Care Teams Newspaper Carriers Supervisor Relationship Specialty Start Date End Date Meka Boles FNP [address] [place] [phone] PCP - General Family Medicine 12/01/22 documented as of this encounter
--- OUTSIDE RECORDS SUMMARY | 2025-08-17 13:57 | XMS_ITS | Clinical Summary ---
Author Organization [employer] Address [address] [place] [address] 7t [place] [address] Care Team Providers Care Reversing Mill Roller Name Role Phone Meka Boles SILVER STEWARD Primary Care Provider [phone] Allergies No known active allergies Medications acetaminophen [...] RECTALLY BEDTIME NEEDED FOR HEMORRHOIDS 4 Active tadalafil (Cialis) 10 MG tablet TAKE 1-2 TABS 1-2 HOURS NEEDED PRIOR TO SEXUAL ACTIVITY NOT TO EXCEED MORE THAN 3 TIMES PER WEEK. 4 Active rosuvastatin (Crestor) 20 MG tablet Take 1 tablet (20 mg) by mouth at bedtime. Do not start before July 31, 2025. 90 tablet 1 5 07/31/20 26 Active Active Problems Problem Noted Date Diagnosed Date Dermatochalasis of both eyelids 07/17/2025 Assessment & Plan (07/17/2025 1:43 PM EDT): - Interested in consult, referral to plastic surgery placed 07/17/25 Sensorineural hearing loss (SNHL) of both ears 1 Overview (07/17/2025): February 2025: [place] with [facility] demonstrated moderately-severe sensorineural hearing loss bilat Assessment & Plan (07/17/2025 1:53 PM EDT): - Recommended contacting insurance to identify covered providers for hearing amplification devices. Provided summary of audiogram results in case necessary for insurance purposes Erectile dysfunction 06/17/2024 Overview (12/31/2024): Following with [facility] - ARELY Epstein Consult Nov 2024: plan to discontinue tadalafil d/t med SE. Currently considering other tx options Routine health maintenance 01/08/2023 Overview (12/31/2024): Colonoscopy: 10/06/23 [facility] - Dr. Fowler. Next due: Sep 2033 PSA: WNL 06/16/24 Last PE: 06/16/24 Hep B titers: non-immune Jun 2024. Declined vaccine series December 2024 Assessment & Plan (06/17/2024 11:48 AM EDT): Declines vaccines today Assessment & Plan (09/20/2023 1:24 PM EST): Declines vaccines today History of basal cell carcinoma 12/06/2022 Overview (09/20/2023): Left ala s/p Mohs procedure 08/2018 Followed with annual skin check [facility] (Last eval January [address] [...] Encounters Date Type Department Care Team Description 07/27/2025 Results Follow-Up [facility] [address] [place] [address] Meka Boles FNP Lipid Panel, Standard, Hemoglobin A1c, TSH with Reflex to Free T4, Additional followed-up results: 3 07/16/2025 1:00 PM EDT Office Visit [facility] [address] [place] [address] Meka Boles FNP Dermatochalasis of both lower eyelids (Primary Dx); Routine health maintenance; Dietary counseling; Exercise counseling; Sensorineural hearing loss (SNHL) of both ears 07/16/2025 Travel 07/13/2025 Telephone [facility] [address] [place] [address] Meka Boles FNP Chart Prep 07/09/2025 Patient Outreach [facility] [address] [place], [place] [phone] Meka Boles FNP Pre-visit Planning (SDOH screening negative and Tobacco screening negative) from Last 3 Months Immunizations Immunization Administration Dates Next Due Hep A, Unspecified 03/30/2017 Social History Tobacco Use Types Packs/Day Years Used Date Smoking Tobacco: Never Smokeless Tobacco: Never Tobacco Cessation:Counseling Given: Not Answered Alcohol Use Standard Drinks/Week Comments Never 0 (1 standard drink = 0.6 oz pur e alcohol) Depression Answer Date Recorded Patient Health Questionnaire-9 Score 4 07/16/2025 Patient Health Questionnaire-9 Score 4 07/16/2025 Last PHQ-9: Questionnaire Data Not on file 1 Housing Stability Answer Date Recorded What is your housing situation today? I have kylee castaneda 07/09/[address] you li ve. Do you have problems with any of the following? None of the above 07/09/2025 Food Insecurity Answer Date Recorded Within the past 12 months, y ou worried that your food would run out before you got money to buy more: Never True 07/09/2025 Within the past 12 months,th e food you bought just didn't last and you didn't have enough money to get more: Never True Transportation Answer Date Recorded In the past 12 months, has l ack of transportation kept you from medical appts, meetings, work or from getting things needed for daily living? No 07/09/2025 Utilities Answer Date Recorded In the past 12 months, has t he electric, gas, oil or water company threatened to shut off services in your home? No 07/09/2025 Depression Answer Date Recorded Patient Health Questionnaire-2 Score 1 07/16/2025 Internet Access Answer Date Recorded Internet Access Q1 Yes 07/09/2025 Internet Access Q2 Not on file 07/09/2025 Sex and Gender Information Value Date Recorded Sex Assigned at Male 10/29/2022 8:58 AM EST Legal Sex Male 8:54 AM EST Gender Identity Male 10/29/2022 8:58 AM EST Sexual Orientation Straight 06/20/2024 4: 37 PM EDT Last Filed Vital Signs Vital Sign Reading Time Taken Comments Blood Pressure 120/70 07/16/2025 1:13 PM EDT Pulse 86 07/16/2025 1:13 PM EDT Temperature 36.4 C (97.5 F) 07/16/2025 1:13 PM EDT Respiratory Rate 10 07/16/2025 1:13 PM EDT Oxygen Saturation 95% 07/16/2025 1:13 PM EDT Inhaled Oxygen Concentration - - Weight 77.1 kg (170 lb) 07/16/2025 1:13 PM EDT Height 160 cm (5' 3 ) 07/16/2025 1:13 PM EDT Body Mass Index 30.11 07/16/2025 1:13 PM EDT Plan of Treatment Health Maintenance Due Date Last Done Comments Dental Prophylaxis 1950 Dental X-Ray: Bitewings 1950 Dental Oral Exam 07/15/2025 01/12/2025, 01/08/2023 Alcohol/Substance Use Screening 12/29/2025 12/29/2024 Influenza Vaccine (#1) 2026 Postp oned from 06/11/2025 (Patient Refused) Tobacco Screening 04/19/2026 04/19/2025 SDOH Screening 07/09/2026 07/09/2025 Depression Screening 07/16/2026 07/16/2025, 07/16/20 25 COVID-19 Vaccine (1 - season) 2026 Postponed from 06/11/2025 (Patient Refused) DTaP/Tdap/Td Vaccines (1 - Tdap) 07/17/2026 Postponed from 01/12/1968 (Patient Refused) Pneumococcal Vaccine: 50+ Years (1 of 1 - PCV) 07/17/2026 Postponed from 1999 (Patient Refused) RSV Patients and Patients Aged 60 years or older (1 - 1-dose 75+ series) 07/17/2026 Postponed from 01/12/2024 (Patient Refused) Zoster Vaccines (1 of 2) 07/17/2026 Pos tponed from 1999 (Patient Refused) Diabetes: Hemoglobin A1C 07/18/2026 025, 06/16/2024, 12/02/2022 Dental X-Ray: Full Mouth 01/14/2028 01/12/2025, 12/11 Lipid Panel 07/18/2030 07/18/2025, 07/13, 06/16/2024, Additional history exists Hepatitis A Vaccines Aged Out 03/30/2017 No long er eligible based on patient's age to complete this topic Colonoscopy Discontinued 10/06/2023 Colorectal Cancer Screening Discontinued Hepatitis C Screening Completed 06/16/2024, 023 CT Colonography Discontinued FIT DNA/Cologuard Discontinued FIT Discontinued FOBT Discontinued HIB Vaccines Aged Out No longer eligi [...] on patient's age to complete this topic Sigmoidoscopy Discontinued Procedures Procedure Name Priority Date/Time Associated Diagnosis Comments PSA, TOTAL Routine 07/18/2025 8:35 AM EDT Routine health maintenance CBC WITH AUTO DIFFERENTIAL Routine 07/18/2025 8:35 AM EDT Routine health maintenance COMPREHENSIVE METABOLIC PANEL Routine 07/18/2025 8:35 AM EDT Routine health maintenance TSH W/REFLEX TO FT4 Routine 07/18/2025 8 :35 AM EDT Routine health maintenance HEMOGLOBIN A1C Routine 07/18/2025 8:35 AM EDT Routine health maintenance LIPID PANEL, STANDARD Routine 07/18/2025 8:35 AM EDT Routine health maintenance PANORAMIC RADIOGRAPHIC IMAGE Routine 01/12/2025 10:00 AM EDT PERIODIC ORAL EVALUATION - ESTABLISHED PATIENT Routine 01/12/2025 10:00 AM EDT HEPATITIS C VIRAL RNA, QUANTITATIVE, REAL-TIME PCR Routine 06/16/2024 10:33 AM EDT Encounter for routine history and physical examination of adult HM COLONOSCOPY Routine 10/06/2023 7:19 AM EST from Last 3 Months or Most Recently Relevant to Health Maintenance Results * TSH with Reflex to Free T4 (07/18/2025 8:35 AM EDT) TSH reflex Free T4 2.61 0.32 - 4.0 uIU/mL [facility] Blood 07/18/2025 8:35 AM EDT 07/18/2025 2:18 PM EDT us Meka Boles SILVER STEWARD LAB BLOOD ORDERABLES Final Res ult [facility] [address] [place] [phone] * (ABNORMAL) CBC auto differential (07/18/2025 8:35 AM EDT) White Blood Count 5.0 4.8 - 10.8 X10*3/uL [facility] Red Blood Count 4.21(L) 4.60 - 5.80 X10*6/uL [facility] Hemoglobin 13.1(L) 14.0 - 18.0 g/dl [facility] Hematocrit 39.5(L) 42.0 - 52.0 % [facility] Mean Corpuscular Volume 93.8 80.0 - 98.0 fL [facility] Mean Corpuscular Hemoglobin 31.1 27.0 - 33.0 pg [facility] Mean Corpuscular HGB Conc 33.2 31.0 - 36.0 g/dl [facility] Red Cell Distribution Width 12.7 11.0 - 16.0 % [facility] Platelet Count 143(L) 160 - 400 X10*3/uL [facility] Mean Platelet Volume 11.4 9.4 - 12.4 fL [facility] Neutrophils Percent Auto 53.8 45 - 73 % [facility] Imm Gran Pct Auto 0.2 0.0 - 0.4 % [facility] Lymphocytes Percent Auto 33.5 20 - 40 % [facility] Monocytes Percent Auto 8.9 2 - 11 % [facility] Eosinophils Percent Auto 2.8 0 - 4 % [facility] Basophils Percent Auto 0.8 0 - 2 % [facility] NRBC Pct Auto 0.0 0.0 - 0.2 /100WBC [facility] Neutrophils Absolute Auto 2.7 2.0 - 8.3 x10*3/uL [facility] Imm Gran Abs Auto 0.01 0.00 - 0.03 X10*3/uL [facility] Lymphocytes Absolute Auto 1.7 1.2 - 4.9 X10*3/uL [facility] Monocytes Absolute Auto 0.5 0.1 - 1.2 X10*3/uL [facility] Eosinophils Absolute Auto 0.1 0.0 - 0.4 X10*3/uL [facility] Basophils Absolute Auto 0.0 0.0 - 0.2 X10*3/uL [facility] NRBC Abs Auto 0.000 0.0 - 0.012 X10*3/uL [facility] Blood Venous blood specimen / Unknown 07/18/2025 8:35 AM EDT 07/18/2025 2:18 PM EDT Meka Boles [facility] LAB BLOOD ORDERABLES Final Res ult Performing Organization Address [facility]/ZIP Co de Phone Number [facility] [address] [place] [phone] * PSA,Total (07/18/2025 8:35 AM EDT) Prostate Specific Antigen 2.55 <0.05 - 4.0 ng/mL [facility] Comment:PSA methodology: Brian Ortega i ChemiluminescentMicroparticle Immunoassay (CMIA) Blood Venous blood specimen / Unknown 07/18/2025 8:35 AM EDT 07/18/2025 2:18 PM EDT Meka Boles [facility] LAB BLOOD ORDERABLES Final Res ult Performing Organization Address City/[facility]/ZIP Co de Phone Number [facility] [address] [place] [address] [phone] * Hemoglobin A1c (07/18/2025 8:35 AM EDT) Hemoglobin A1c 5.7 <6.0 % [facility] Comment:Hemoglobin A1C Refer ence Range Adults: 4.8 - 6.0 % Non diabetic: < 6.0 % Goal: < 7.0 %Additional Action Suggested: > 8.0 %Note: Hemoglobin A1c results are invalid for patients with abnormal amounts of HbF. Blood transfusions may impact the HbA1c concentration in the patient sample. Estimated Average Glucose 117 mg/dL [facility] Comment:eAG = Estimated ave rage glucose which is %A1C expressed asaverage glucose, using the formula of the X6R-WwpafunClgutyh Glucose study (ADAG), Diabetes Care, Vol.31,#8,2007 Blood Venous blood specimen / Unknown 07/18/2025 8:35 AM EDT 07/18/2025 2:18 PM EDT us Meka Boles SILVER STEWARD LAB BLOOD ORDERABLES Final Res ult [facility] [address] [place] [phone] * (ABNORMAL) Lipid Panel, Standard (07/18/2025 8:35 AM EDT) Triglycerides 109 <150 mg/dL [facility] Comment:Desirable Triglyceri de: less than 150 mg/dLBorderline High Triglyceride 150-199 mg/dLHigh Triglyceride: 200-499 mg/dLVery High Triglyceride: greater than or equal to 5OO mg/dL Cholesterol 153 <200 mg/dL [facility] Comment:Desirable Cholestero l: less than 200 mg/dLBorderline High Cholesterol: 200-239 mg/dLHigh Cholesterol: greater than 239 mg/dL LDL Cholesterol Calculated 100(H) <100 mg/dL [facility] Comment:Desirable LDL: less than 100 mg/dLNear Optimal/Above Optimal LDL: 110- 129 mg/dLBorderline High LDL: 130-159 mg/dLHigh LDL: 160-189 mg/dLVery High LDL: greater than or equal to 190 mg/dL HDL Cholesterol 32(L) >40 mg/dL [facility] Comment:Desirable HDL: great er than 40 mg/dL Note: This HDL assay may give artificially low results in patients with liver disease. Blood Venous blood specimen / Unknown 07/18/2025 8:35 AM EDT 07/18/2025 2:18 PM EDT us Meka Boles SILVER STEWARD LAB BLOOD ORDERABLES Final Res ult Performing Organization Address City/[facility]/ZIP Co de Phone Number [facility] [address] [place] [phone] * (ABNORMAL) Comprehensive Metabolic Panel (07/18/2025 8:35 AM EDT) Sodium 141 135 - 145 mmol/L [facility] Potassium 3.7 3.3 - 5.1 mmol/L [facility] Chloride 109(H) 96 - 108 mmol/L [facility] Carbon Dioxide 29 22 - 29 mmol/L [facility] Anion Gap 7(L) 12 - 20 [facility] Urea Nitrogen (BUN) 12 9 - 16 mg/dL [facility] Creatinine, Serum 0.76 0.5 - 1.4 mg/dL [facility] Estimated Glomerular Filt Rate >60 [facility] Comment:Chronic Kidney Disea se: Estimated GFR < 60 mL/min/1.66n5Nyieol Kidney Disease: Estimated GFR < 15 mL/min/1.73m2 Glucose 89 60 - 115 mg/dL [facility] Calcium 8.9 8.4 - 10.2 mg/dL [facility] Bilirubin, Total 0.6 0.0 - 1.0 mg/dL [facility] Aspartate Amino Transferase 29 5 - 37 U/L [facility] Alanine Aminotransferase 14 0 - 40 U/L [facility] Total Protein 6.8 6.5 - 8.0 g/dL [facility] Albumin Level 4.1 3.5 - 5.0 g/dL [facility] Alkaline Phosphatase 79 39 - 117 U/L [facility] Blood Venous blood specimen / Unknown 07/18/2025 8:35 AM EDT 07/18/2025 2:18 PM EDT us Meka Boles SILVER STEWARD LAB BLOOD ORDERABLES Final Res ult [facility] [address] [place] [phone] * Hepatitis C Viral RNA, Quantitative, Real-Time PCR (06/16/2024 10:33 AM EDT) Hepatitis C Viral Load <15 NOT DETECTED NOT DETECTED IU/mL [facility] HCV Log PCR <1.18 NOT DETECTED NOT DETECTED Log IU/mL [facility] Comment:For additional infor normmiranda, please refer [email or web address].[email or web address]/EIF52t7(This link is being provided for informational/educational purposes only.)THIS TEST WAS PERFORMED AT:[employer] [place] [phone] DOMINGUEZ MD Blood 06/16/2024 10:3 3 AM EDT 06/16/2024 2:03 PM EDT Meka Boles SILVER STEWARD LAB BLOOD ORDERABLES Final Res ult [facility] [address] [place] [phone] * Colonoscopy (10/06/2023 7:19 AM EST) Historical Provider HEALTH MAINTENANCE Final Result from Last 3 Months or Most Recently Relevant to Health Maintenance Insurance [facility] MEDICARE ADVANTAGE HMO [facility] PPO * Guarantor: Cheng Marie Account Type Relation to Patient Date of Phone Billing Address Personal/Family Self [address] [facility] [place] Care Teams Reversing Mill Roller Relationship Specialty Start Date End Date Meka Boles FNP [address] [place] [phone] PCP - General Family Medicine 12/01/22
--- OUTSIDE RECORDS SUMMARY | 2025-08-17 13:57 | XMS_ITS | Encounter Summary ---
Author Organization [employer] [facility] Address [address] [place] [phone] Phone Care Team Providers Care Window/Distribution Clerk Name Role Phone Flower Roberts MD Primary Care Provider [phone] Encounter Details Date Type Department Care Team (Late st Contact Info) Description 01/15/2020 Ancillary Orders [facility] - CT Main [address] [address] Shira Fuentes MD [address] [place] [phone] [email or web address] Social History Tobacco Use Types Packs/Day Years Used Date Smoking Tobacco: Never Assessed Sex and Gender Information Value Date Recorded Sex Assigned at Male 01/05/2021 4:48 PM EDT Legal Sex Male 11:27 AM EDT Gender Identity Male 01/05/2021 4:48 PM EDT Sexual Orientation Not on file documented as of this encounter Plan of Treatment Not on file documented as of this encounter Results * MRI Brain Outside (No Interpretation) (12/12/2019 12:00 AM EST) Narrative [facility] - 01/15/2020 10:31 AM EDT This study is for PACS storage only and not for interpretation. us Shira Fuentes MD IMG OUTSIDE IMAGING W/OUT IN TERPRETATION Final Result Performing Organization Address [facility] [[email or web address]] de Phone Number [facility] * CT Face Outside (No Interpretation) (07/07/2018 12:00 AM EDT) Narrative [facility] - 01/15/2020 10:29 AM EDT This study is for PACS storage only and not for interpretation. us Shira Fuentes MD IMG OUTSIDE IMAGING W/OUT IN TERPRETATION Final Result Performing Organization Address [facility] [[email or web address]] de Phone Number [facility] * MRI Brain Outside (No Interpretation) (07/06/2018 12:00 AM EDT) Narrative [facility] - 01/15/2020 10:32 AM EDT This study is for PACS storage only and not for interpretation. us Shira Fuentes MD IMG OUTSIDE IMAGING W/OUT IN TERPRETATION Final Result Performing Organization Address [facility] de Phone Number [facility] * CT Head Outside (No Interpretation) (06/23/2018 12:00 AM EDT) Narrative [facility] - 01/15/2020 10:33 AM EDT This study is for PACS storage only and not for interpretation. us Shira Fuentes MD IMG OUTSIDE IMAGING W/OUT IN TERPRETATION Final Result Performing Organization Address [facility] [[email or web address]] de Phone Number [facility] documented in this encounter Visit Diagnoses Not on filedocumented in this encounter Care Teams Window/Distribution Clerk Relationship Specialty Start Date End Date Flower Roberts MD [address] [place] [phone] PCP - General Internal Medicine 01/15/20 documented as of this encounter Additional Source Comments The information contained in this document represents components of the legal health record. It is not the complete legal health record.[facility]
--- OUTSIDE RECORDS SUMMARY | 2025-08-17 13:57 | XMS_ITS | Encounter Summary ---
Author Organization [facility] Address [address] [email or web address] [address] [address] Phone Care Team Providers Care Hobbies And Crafts Sales Representative Name Role Phone Flower Roberts MD Primary Care Provider [phone] Encounter Details Date Type Department Care Team (Late st Contact Info) Description 07/05/2020 Procedure Pass [facility] - [facility] [address] [place] [address] Social History Tobacco Use Types Packs/Day Years Used Date Smoking Tobacco: Never Smokeless Tobacco: Never Alcohol Use Standard Drinks/Week Comments Not Currently 0 (1 standard drink = 0.6 oz [...] on filedocumented in this encounter Care Teams Hobbies And Crafts Sales Representative Relationship Specialty Start Date End Date Flower Roberts MD [address] [place] [phone] PCP - General Internal Medicine 01/15/20 documented as of this encounter Additional Source Comments The information contained in this document represents components of the legal health record. It is not the complete legal health record.[facility]
--- OUTSIDE RECORDS SUMMARY | 2025-08-17 13:57 | XMS_ITS | Encounter Summary ---
Author Organization [facility] Address [address] [place] [phone] Phone Care Team Providers Care Certified Coatings Inspector Name Role Phone Flower Roberts MD Primary Care Provider [phone] Encounter Details Date Type Department Care Team (Late st Contact Info) Description 01/15/2020 Ancillary Orders [facility] [address] [place] [address] Shira Fuentes MD [address] [place] [phone] [email or web address] Social History Tobacco Use Types Packs/Day Years [...] on filedocumented in this encounter Care Teams Certified Coatings Inspector Relationship Specialty Start Date End Date Flower Roberts MD [address] [place] [phone] PCP - General Internal Medicine 01/15/20 documented as of this encounter Additional Source Comments The information contained in this document represents components of the legal health record. It is not the complete legal health record.[facility]
--- OUTSIDE RECORDS SUMMARY | 2025-08-17 13:57 | XMS_ITS | Encounter Summary ---
Author Organization [employer] Address [address] [facility] [address] [place] [address] Care Team Providers Care Bus Trolley And Taxi Instructor Name Role Phone Meka Boles GATE PERSON Primary Care Provider [phone] Encounter Details Date Type Department Care Team ([facility] st Contact Info) Description 01/05/2025 Orders Only [facility] [address] [place], [place] [phone] Provider, MD Dimitri Social History Tobacco Use Types Packs/Day Years [...] is your housing situation today? I have kyleejayshree castaneda 06/08/[address] you [...] the past 12 months, has t he [employer], oil or water company threatened to shut [...] Orientation Straight 06/20/2024 4: 37 PM EDT documented as of this encounter Plan of Treatment Not on file documented as of this encounter Procedures Procedure Name Priority Date/Time Associated Diagnosis Comments HM COLONOSCOPY Routine 10/06/2023 7:19 AM EST documented in this encounter Results * Hm Colonoscopy (10/06/2023 7:19 AM EST) us Historical Provider HEALTH MAINTENANCE Final Result documented in this encounter Visit Diagnoses Not on filedocumented in this encounter Additional Health Concerns Assessment Noted Time PHQ-9 Depression Total Score: 2 06/16/20 24 9:13 AM EDT documented as of this encounter Care Teams Bus Trolley And Taxi Instructor Relationship Specialty Start Date End Date Meka Boles FNP [address] [place] [phone] PCP - General Family Medicine 12/01/22 documented as of this encounter
--- OUTSIDE RECORDS SUMMARY | 2025-08-17 13:57 | XMS_ITS | Clinical Summary ---
Author Organization [facility] Address [address] [place] [address] Care Team Providers Care Qa Automation Engineer Name Role Phone Xin Shaw PA-C Primary Care Provider [phone] Source Comments PLEASE NOTE, if this patient [...] 71 06/17/2017 9:56 AM EDT Temperature 36.8 C (98.2 F) 06/17/2017 9:56 AM EDT Respiratory Rate 12 06/17/2017 9:56 AM EDT Oxygen Saturation - - Inhaled Oxygen Concentration - - Weight 73.5 kg (162 lb) 06/17/2017 9:56 AM EDT Height 160 cm (5' 3 ) 06/17/2017 9:56 AM EDT Body Mass Index 28.7 06/17/2017 9:56 AM EDT Plan of Treatment Not on file Insurance MEDICARE - [place] Care Teams Qa Automation Engineer Relationship Specialty Start Date End Date Xin Shaw PA-C [address] [place] [address] PCP - General 12/06/18
--- OUTSIDE RECORDS SUMMARY | 2025-08-17 13:57 | XMS_ITS | Encounter Summary ---
Author Organization [facility] Address [address] [place] [address] Phone Care Team Providers Care Sail Repairer Name Role Phone Flower Roberts MD Primary Care Provider [phone] Encounter Details Date Type Department Care Team (Late st Contact Info) Description 06/12/2020 Ancillary Orders [facility] Imaging - Ultrasound, [address] [address] Liliana John PA-C [address] [place] [address] Mariana [email or web address] Chronic frontal sinusitis Social History Tobacco Use Types Packs/Day Years [...] documented as of this encounter Results * US Soft Tissues of Head and Neck (Lymph Node Survey) (06/24/2020 1:56 PM EDT) Anatomical Region Laterality Modality Neck, Head Ultrasound 06/24/2020 2:02 PM EDT Impressions 06/24/2020 2:05 PM EDT Fine-needle aspiration of area of left prefrontal soft tissue swelling. Narrative 06/24/2020 2:05 PM EDT INDICATION: History of left prefrontal phlegmon/abscess TECHNIQUE: US SOFT TISSUES OF HEAD AND NECK (LYMPH NODE SURVEY), US SOFT TISSUE ASPIRATION COMPARISON: CT face performed June 24, 2020 FINDINGS: Within the left prefrontal soft tissues just to the left of midline, there is a hypoechoic region measuring 0.4 cm in depth by 2.9 cm transverse, with adjacent bony irregularity of the anterior wall of the left frontal sinus. This was targeted for fine-needle aspiration. PROCEDURE NOTE: Following informed consent obtained through the aid of an porcelain enameling supervisor (risks of infection, bleeding ), the patient was prepped and draped in the usual sterile fashion. Using sonographic guidance, approximately 3 mL of 1% lidocaine as local anesthetic, 5 25-gauge needle passes and one 20-gauge needle pass were made into the left prefrontal hypoechoic region. Samples were scant and blood-tinged. No fransisco purulent fluid was aspirated. Samples were submitted on slides and rinse forms for cytopathology and microbiology (aerobic, anaerobic, AFB and fungal) as per the request of the ordering team. No postprocedure hematoma was identified. The patient tolerated the procedure. No immediate complications were encountered. Procedure Note Desiree Pierre MD - 06/24/2020 INDICATION: History of left prefrontal phlegmon/abscess TECHNIQUE: US SOFT TISSUES OF HEAD AND NECK (LYMPH NODE SURVEY), US SOFTTISSUE ASPIRATION COMPARISON: CT face performed June 24, 2020 FINDINGS: Within the left prefrontal soft tissues just to the left of midline, thereis a hypoechoic region measuring 0.4 cm in depth by 2.9 cm transverse,with adjacent bony irregularity of the anterior wall of the left frontalsinus. This was targeted for fine-needle aspiration. PROCEDURE NOTE: Following informed consent obtained through the aid of an porcelain enameling supervisor(risks of infection, bleeding ), the patient was prepped and draped in theusual sterile fashion. Using sonographic guidance, approximately 3 mL of1% lidocaine as local anesthetic, 5 25-gauge needle passes and [id number] needle pass were made into the left prefrontal hypoechoic region.Samples were scant and blood-tinged. No fransisco purulent fluid wasaspirated. Samples were submitted on slides and rinse forms forcytopathology and microbiology (aerobic, anaerobic, AFB and fungal) as perthe request of the ordering team. No postprocedure hematoma wasidentified. The patient tolerated the procedure. No immediatecomplications were encountered. IMPRESSION: Fine-needle aspiration of area of left prefrontal soft tissue swelling. Shira Fuentes MD IMG US HEAD/NECK NON THYROID Final Result documented in this encounter Visit Diagnoses Diagnosis Chronic frontal sinusitis Chronic frontal sinusitis documented in this encounter Care Teams Sail Repairer Relationship Specialty Start Date End Date Flower Roberts MD [address] [place] [id number] PCP - General Internal Medicine 01/15/20 documented as of this encounter Additional Source Comments The information contained in this document represents components of the legal health record. It is not the complete legal health record.[facility]
--- OUTSIDE RECORDS SUMMARY | 2025-08-17 13:57 | XMS_ITS | Clinical Summary ---
Author Organization [facility] Address [address] [address] Phone Care Team Providers Care Swage Tender Name Role Phone Flower Roberts MD Primary Care Provider [phone] Allergies No known active allergies Medications acetaminophen (TYLENOL) 500 MG tablet Take 1 tablet (500 mg total) by mouth every 6 (six) hours as needed for pain (specific location in comments). 0 1 Active Additional Information Patient not taking.Reported on 12/11/2020 moxifloxacin (AVELOX) 400 mg tablet Take 1 tablet (400 mg total) by mouth daily. 42 tablet 1 Active Additional Information Patient not taking.Reported on 04/16/2021 Active Problems No known active problems Social History Tobacco Use Types Packs/Day Years Used Date Smoking Tobacco: Never Smokeless Tobacco: Never Alcohol Use Standard Drinks/Week Comments Not Currently 0 (1 standard drink = 0.6 oz pur e alcohol) Education Answer Date Recorded Are you interested in more education? Not on anneliese e 02/05/2023 Are you concerned about learning? Not on file 02/05/2023 No 02/05/2023 No 02/05/2023 Digital Access Answer Date Recorded No 03/09/2023 No 03/09/2023 Reliable internet access at home? Not on file 03/09/2023 Device with a working camera? Not on file Sex and Gender Information Value Date Recorded Sex Assigned at Male 01/05/2021 4:48 PM EDT Legal Sex Male 11:27 AM EDT Gender Identity Male 01/05/2021 4:48 PM EDT Sexual Orientation Not on file Last Filed Vital Signs Vital Sign Reading Time Taken Comments Blood Pressure 125/70 01/06/2021 1:02 PM EDT Pulse 72 01/06/2021 1:02 PM EDT Temperature 36.6 C (97.8 F) 01/06/2021 1:02 PM EDT Respiratory Rate 16 12/02/2020 11:00 AM EST Oxygen Saturation 100% 01/06/2021 1:02 PM EDT Inhaled Oxygen Concentration - - Weight 74.4 kg (164 lb) 01/06/2021 1:02 PM EDT Height 160 cm (5' 3 ) 12/02/2020 7:07 AM EST Body Mass Index 29.05 12/02/2020 7:07 AM EST Plan of Treatment Health Maintenance Due Date Last Done Comments Adult Td,Tdap Booster 1950 LIPID PANEL 1950 DEPRESSION SCREENING 1961 HEPATITIS C SCREENING 1967 PNEUMOCOCCAL VACCINES (50+ y ears) (1 of 1 - PCV) 1999 ZOSTER VACCINES (1 of 2) 1999 RSV VACCINE (1 - 1-dose 75+ series) 01/12/2024 INFLUENZA VACCINE (#1) 2025 COVID-19 VACCINE (1 - 2024-2 6 season) 2025 SMOKING STATUS SCREENING (On ce After 26 Yrs) Completed 12/10/2021 HEPATITIS A VACCINES Aged Out No long er eligible based on patient's age to complete this topic HIB VACCINES Aged Out No longer eligi ble based on patient's age to complete this topic MENINGOCOCCAL VACCINES (ACWY) Aged Out No longer eligible based on patient's age to complete this topic MENINGOCOCCAL VACCINES (B) Aged Out N o longer eligible based on patient's age to complete this topic Medical Devices Not on file Insurance [facility] MEDICARE REPLACEMENT [facility] MEDICARE REPLACEMENT [facility] MEDICARE REPLACEMENT [facility] MEDICARE REPLACEMENT [place] [id number] [facility] MEDICARE REPLACEMENT [facility] MEDICARE REPLACEMENT [facility] MEDICARE REPLACEMENT [place] [id number] [place] [id number] Advance Directives For more information, please contact: [phone] (9AM - 5PM [facility], Wednesday-Wednesday) Documents on File Type Date Recorded Patient Manager Web Expl anation Healthcare Proxy 12/03/2020 12:25 PM Care Teams Swage Tender Relationship Specialty Start Date End Date Flower Roberts MD [address] [place] [address] PCP - General Internal Medicine 01/15/20 Additional Source Comments The information contained in this document represents components of the legal health record. It is not the complete legal health record.[facility]
--- OUTSIDE RECORDS SUMMARY | 2025-08-17 13:57 | XMS_ITS | Encounter Summary ---
Author Organization [facility] Address [address] [address] Phone Care Team Providers Care Acquisition Cost Estimator Name Role Phone Flower Roberts MD Primary Care Provider [phone] Encounter Details Date Type Department Care Team (Late st Contact Info) Description 04/17/2021 Procedure Pass [facility] - CT Main [place] [address] [place] [address] Social History Tobacco Use Types Packs/Day Years [...] on filedocumented in this encounter Care Teams Acquisition Cost Estimator Relationship Specialty Start Date End Date Flower Roberts MD [address] [place] [id number] PCP - General Internal Medicine 01/15/20 documented as of this encounter Additional Source Comments The information contained in this document represents components of the legal health record. It is not the complete legal health record.[facility]
--- OUTSIDE RECORDS SUMMARY | 2025-08-17 13:57 | XMS_ITS | Encounter Summary ---
Author Organization [facility] Address [address] [facility] [address] [place] [address] Phone Care Team Providers Care Roofer Assistant Name Role Phone Flower Roberts MD Primary Care Provider [phone] Encounter Details Date Type Department Care Team (Late st Contact Info) Description 03/25/2020 Procedure Pass [facility] Imaging - [place] [address] [address] Social History Tobacco Use Types Packs/Day Years [...] on filedocumented in this encounter Care Teams Roofer Assistant Relationship Specialty Start Date End Date Flower Roberts MD [address] [place] [address] PCP - General Internal Medicine 01/15/20 documented as of this encounter Additional Source Comments The information contained in this document represents components of the legal health record. It is not the complete legal health record.[facility]
--- OUTSIDE RECORDS SUMMARY | 2025-08-17 13:57 | XMS_ITS | Encounter Summary ---
Author Organization [facility] Address [address] [address] Phone Care Team Providers Care Financial Services Manager Name Role Phone Flower Roberts MD Primary Care Provider [phone] Encounter Details Date Type Department Care Team (Late st Contact Info) Description 04/16/2021 Procedure Pass [facility] Imaging - CT Main [place] [address] [place] [address] Social History Tobacco Use Types Packs/Day Years [...] on filedocumented in this encounter Care Teams Financial Services Manager Relationship Specialty Start Date End Date Flower Roberts MD [address] [place] [address] PCP - General Internal Medicine 01/15/20 documented as of this encounter Additional Source Comments The information contained in this document represents components of the legal health record. It is not the complete legal health record.[facility]
--- OUTSIDE RECORDS SUMMARY | 2025-08-17 13:57 | XMS_ITS | Encounter Summary ---
Author Organization [facility] Address [facility] [address] [address] Phone Care Team Providers Care Continuity Writer Name Role Phone Flower Roberts MD Primary Care Provider [phone] Encounter Details Date Type Department Care Team (Late st Contact Info) Description 01/15/2020 Ancillary Orders [facility] Otolaryngology [address] [address] Shira Fuentes MD [address] [place] [id number] [email or web address] Social History Tobacco Use Types [...] documented as of this encounter Results * CT Face Outside (No Interpretation) (08/24/2019 12:00 AM EST) Narrative [facility] - 01/15/2020 9:52 AM EDT This study is for PACS storage only and not for interpretation. us Shira MAY OUTSIDE IMAGING W/OUT IN TERPRETATION Final Result [facility] documented in this encounter Visit Diagnoses Not on filedocumented in this encounter Care Teams Continuity Writer Relationship Specialty Start Date End Date Flower Roberts MD [address] [place] [id number] PCP - General Internal Medicine 01/15/20 documented as of this encounter Additional Source Comments The information contained in this document represents components of the legal health record. It is not the complete legal health record.[facility]
--- OUTSIDE RECORDS SUMMARY | 2025-08-17 13:57 | XMS_ITS | Clinical Summary ---
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 Depression 05/25/2018 Multiple nevi 05/25/2018 Overview (09/27/2024): Derm referral 03/2017 Immunizations Immunization Administration Dates Next Due Hep [...] 1999 Zoster Vaccines (1 of 2) 1999 Falls Risk Assessment 09/19/2022 Social Influencers of Health Screening 09/19/2022 RSV Immunization Adult Patie nts (1 - 1-dose 75+ series) 01/12/2024 Cholesterol Screening (Lipid Panel) 06/19/2024 06/19/2019 Depression Screening 10/11/2024 COVID-19 Vaccine ( - 2023-2 5 season) 2025 Influenza Vaccine (#1) 2025 Hepatitis A Vaccines Aged Out 03/30/2017 [...] Recently Relevant to Health Maintenance Care Teams Manager Gaming Relationship Specialty Start Date End Date Veronique Henry MD PCP - General Internal Medicine 04/20/22
--- OUTSIDE RECORDS SUMMARY | 2025-08-17 13:57 | XMS_ITS | Encounter Summary ---
Author Organization [facility] Address [address] [address] Phone Care Team Providers Care Human Resource Professional Name Role Phone Flower Roberts MD Primary Care Provider [phone] Encounter Details Date Type Department Care Team (Late st Contact Info) Description 12/02/2020 Procedure Pass [facility] MA[facility] PERIOP DEPT [address] [place] [address] Social History Tobacco Use Types Packs/Day Years [...] on filedocumented in this encounter Care Teams Human Resource Professional Relationship Specialty Start Date End Date Flower Roberts MD [address] [place] [id number] PCP - General Internal Medicine 01/15/20 documented as of this encounter Additional Source Comments The information contained in this document represents components of the legal health record. It is not the complete legal health record.[facility]
[2025-08-17 14:09] LABS: MANUAL DIFF FLAG NO
[2025-08-17 14:13] LABS: Hematocrit 41.7 % (42.0-52.0); Hemoglobin 13.8 g/dl (14.0-18.0); Imm Gran Abs Auto 0.01 X10*3/uL (0.00-0.03); Imm Gran Pct Auto 0.2 % (0.0-0.4); Lymphocytes Absolute Auto 1.7 X10*3/uL (1.2-4.9); Mean Corpuscular HGB Conc 33.1 g/dl (31.0-36.0); Mean Corpuscular Hemoglobin 30.7 pg (27.0-33.0); Mean Corpuscular Volume 92.9 fL (80.0-98.0); NRBC Abs Auto 0.000 X10*3/uL (0.0-0.012); NRBC Pct Auto 0.0 /100WBC (0.0-0.2); Platelet Count 145 X10*3/uL (160-400); Red Blood Count 4.49 X10*6/uL (4.60-5.80); Reticulocytes Absolute 0.047 X10*6/uL (0.026-0.095); White Blood Count 4.1 X10*3/uL (4.8-10.8)
== END 2025-08-17 11:32 | disposition home or self-care (01) ==
LOC: HO.CHCLDS 11:31
PROVIDERS: Visit Provider Registered Nurse
DX: D64.9 Anemia, unspecified (principal)
CPT/HCPCS: 85025; 85045